=== PATIENT | male | born 1940 | race Caucasian/White ===

== ENCOUNTER 2016-05-25 12:11 | Emergency (ER) | payer MEDICARE, BC ==
[2016-05-25] MEDS ORDERED: SODIUM CHLORIDE 0.9% 1,000 ML IV ONE (12:33)
[2016-05-25] MEDS ORDERED: DIAZEPAM 5 MG/ML 2 ML SYRINGE IVP STA (12:33)
[2016-05-25] MEDS ORDERED: MECLIZINE 12.5 MG TAB PO STA (12:33)
[2016-05-25] MEDS ORDERED: ONDANSETRON 4 MG/2 ML VIAL IVP STA (12:33)
--- NOTE | 2016-05-25 12:48 | ED ---
Dizziness HPI - General Stated Complaint: near syncope Time Seen by Provider: 05/25/16 12:21 Source: patient Mode of arrival: EMS Limitations: no limitations - History of Present Illness Initial Comments: This is a 75-year-old male with a history of vertigo who presents here department for sudden onset of dizziness. He was closing on his house when the symptoms started. He states he became extremely dizzy which she describes as room spinning. He had associated nausea and lightheadedness with this. He did not pass out however felt like he might. He states that he had difficulty with ambulation because he was so dizzy. He denies any chest pain or shortness of breath. No abdominal pain. He does admit to some nausea and vomiting. No diarrhea. No headaches. No focal weakness. No other complaints. MD Complaint: dizziness - Related Data Home Medications Medication Instructions Recorded Confirmed Lenalidomide [Revlimid] 5 mg PO DAILY 05/25/16 05/25/16 Previous Rx's Medication Instructions Recorded Meclizine [Antivert] 25 mg PO TID PRN #20 tab 05/25/16 Allergies Allergy/AdvReac Type Severity Reaction Status Date / Time No Known Allergies Allergy Verified 05/25/16 12:49 Review of Systems ROS Statement: Those systems with pertinent positive or pertinent negative responses have been documented in the HPI. ROS Other: All systems not noted in ROS Statement are negative. Past Medical History Past Medical History: Cancer History of Any Multi-Drug Resistant Organisms: None Reported Past Surgical History: No Surgical Hx Reported Past Psychological History: No Psychological Hx Reported Smoking Status: Never smoker Past Alcohol Use History: None Reported Past Drug Use History: None Reported General Exam - General Exam Comments Initial Comments: Constitutional: Awake alert appears uncomfortable Head: Normocephalic atraumatic Eyes: no conjunctival injection No scleral icterus EOMI, the patient has a right beating nystagmus Neck: No JVD Supple Heart: Regular rate rhythm normal S1-S2 no murmurs Lungs: Clear to auscultation bilaterally No wheezing No rales Abdomen: Soft nondistended nontender Extremities: Non edematous DP pulses intact Radial pulses intact Neuro: A&Ox3 cranial nerves II through XII are grossly intact, 5 out of 5 strength in upper and lower extremities bilaterally, the patient has no dysdiadochokinesia in the bilateral upper extremities Psych: Appropriate mood and affect Limitations: no limitations Course Vital Signs 05/25/16 05/25/16 05/25/16 12:34 13:32 15:32 Temperature 96.1 F L 96.9 F L Pulse Rate 65 60 64 Respiratory 22 18 18 Rate Blood Pressure 199/93 148/71 153/73 O2 Sat by Pulse 99 98 98 Oximetry EKG Findings - EKG Comments: EKG Findings:: EKG showing sinus tach cardia with a rate of 56. There are some T-wave inversions in V2 V3 and lead 3 with an appearance of an incomplete bundle -branch block. QTC is 478. Other intervals are normal. No ectopy. Medical Decision Making - Medical Decision Making This 75-year-old male came in for sudden onset of vertigo. The patient had nystagmus on examination. Computed tomography scan was unremarkable except for some calcifications in his carotid arteries which the family was notified about. The patient a complete resolution of his symptoms with Valium and Antivert. His potassium was noted to be low however there are no EKG changes. He was given replacement in the emergency department. Patient felt good and wanted to go home. He was discharged with Antivert. He was told to follow-up with his primary doctor for further evaluation. He can return if he has worsening or changing symptoms. All questions were answered. - Lab Data Result diagrams: 05/25/16 12:20 05/25/16 12:20 Lab Results 05/25/16 05/25/16 05/25/16 Range/Units 12:20 12:20 12:20 WBC 5.2 (3.8-10.6) k/uL RBC 4.56 (4.30-5.90) m/uL Hgb 15.3 (13.0-17.5) gm/dL Hct 43.5 (39.0-53.0) % MCV 95.4 (80.0-100.0) fL MCH 33.5 (25.0-35.0) pg MCHC 35.2 (31.0-37.0) g/dL RDW 13.7 (11.5-15.5) % Plt Count 173 (150-450) k/uL Neutrophils % 44 % Lymphocytes % 41 % Monocytes % 6 % Eosinophils % 5 % Basophils % 1 % Neutrophils # 2.3 (1.3-7.7) k/uL Lymphocytes # 2.1 (1.0-4.8) k/uL Monocytes # 0.3 (0-1.0) k/uL Eosinophils # 0.3 (0-0.7) k/uL Basophils # 0.1 (0-0.2) k/uL PT 11.3 (9.0-12.0) sec INR 1.1 (<1.1) APTT 21.6 L (22.0-30.0) sec Sodium 140 (137-145) mmol/L Potassium 2.8 L* (3.5-5.1) mmol/L Chloride 105 (98-107) mmol/L Carbon Dioxide 20 L (22-30) mmol/L Anion Gap 15 mmol/L BUN 9 (9-20) mg/dL Creatinine 0.89 (0.66-1.25) mg/dL Est GFR (MDRD) Af Amer >60 (>60 ml/min/1.73 sqM) Est GFR (MDRD) Non-Af >60 (>60 ml/min/1.73 sqM) Glucose 181 H (74-99) mg/dL Calcium 8.9 (8.4-10.2) mg/dL Total Bilirubin 2.0 H (0.2-1.3) mg/dL AST 19 (17-59) U/L ALT 31 (21-72) U/L Alkaline Phosphatase 68 (38-126) U/L Total Protein 6.6 (6.3-8.2) g/dL Albumin 3.8 (3.5-5.0) g/dL Disposition Clinical Impression: Vertigo Disposition: HOME SELF-CARE Condition: Stable Instructions: Vertigo (ED), Benign Paroxysmal Positional Vertigo (ED) Prescriptions: Meclizine [Antivert] 25 mg PO TID PRN #20 tab PRN Reason: Dizziness Referrals: Kaylin Servin DO [Primary Care Provider] - 1-2 days
[2016-05-25 13:04] LABS: Basophils # (A) 0.1 k/uL (0-0.2); Basophils % (A) 1 %; CH 34.7; CHCM 36.5; Eosinophils # (A) 0.3 k/uL (0-0.7); Eosinophils % (A) 5 %; HCT 43.5 % (39.0-53.0); HDW 2.96; HGB 15.3 gm/dL (13.0-17.5); Luc # (Auto) 0.14; Luc % (Auto) 3; Lymphocytes # (A) 2.1 k/uL (1.0-4.8); Lymphocytes % (A) 41 %; MCH 33.5 pg (25.0-35.0); MCHC 35.2 g/dL (31.0-37.0); MCV 95.4 fL (80.0-100.0); Mean Platelet Volume 7.1; Monocytes # (A) 0.3 k/uL (0-1.0); Monocytes % (A) 6 %; Neutrophils # (A) 2.3 k/uL (1.3-7.7); Neutrophils % (A) 44 %; RBC 4.56 m/uL (4.30-5.90); RDW 13.7 % (11.5-15.5); WBC 5.2 k/uL (3.8-10.6); WBC (Perox) 5.29
[2016-05-25 13:13] LABS: INR 1.1 (<1.1); Prothrombin Time 11.3 sec (9.0-12.0)
[2016-05-25 13:14] LABS: ALT 31 U/L (21-72); AST 19 U/L (17-59); Alkaline Phosphatase 68 U/L (38-126); Anion Gap 15 mmol/L; Blood Urea Nitrogen 9 mg/dL (9-20); Calcium 8.9 mg/dL (8.4-10.2); Carbon Dioxide 20 mmol/L (22-30); Chloride 105 mmol/L (98-107); Glucose 181 mg/dL (74-99); Non-African American GFR(MDRD) >60 (>60 ml/min/1.73 sqM); Sodium 140 mmol/L (137-145); Total Protein 6.6 g/dL (6.3-8.2)
[2016-05-25 13:24] LABS: Potassium 2.8 mmol/L (3.5-5.1)
[2016-05-25] MEDS ORDERED: POTASSIUM CHLORIDE ER 20 MEQ TAB.ER PO STA (13:25)
--- NOTE | 2016-05-25 13:26 | CT ---
EXAMINATION TYPE: CT brain wo con DATE OF EXAM: 05/25/2016 1:06 PM HISTORY: Dizziness, nausea, vomiting and weakness. CT DLP: 1090.4 mGycm. Automated Exposure Control for Dose Reduction was Utilized. TECHNIQUE: CT scan of the head is performed without contrast. COMPARISON: None. FINDINGS: There is no acute intracranial hemorrhage or midline shift identified. There is diffuse v entricular and sulcal prominence consistent with diffuse age-related cerebral atrophy. There is low- attenuation in the periventricular white matter consistent with chronic small vessel ischemic change. There is moderate vascular calcification of distal internal carotid and vertebral arteries bilateral ly. The globes are intact and the visualized sinuses are clear. IMPRESSION: No acute intracranial hemorrhage or midline shift. There is moderate diffuse age-relate d cerebral atrophy and mild chronic small vessel ischemic change noted.
[2016-05-25 13:31] LABS: Partial Thromboplastin Time 21.6 sec (22.0-30.0)
[2016-05-25 13:33] VITALS: RESP 18
[2016-05-25 15:35] VITALS: BP 153/73; PULSE 64; TEMP 96.9
== END 2016-05-25 15:35 | disposition home or self-care (01) ==
LOC: EC 12:11
DX: R42 Dizziness and giddiness (principal); R11.2 Nausea with vomiting, unspecified; Z85.9 Personal history of malignant neoplasm, unspecified; Z79.899 Other long term (current) drug therapy
CPT/HCPCS: 36415; 93005; 80053; 85025; 85610; 85730; 70450; 99285; 96374; 96361; J3360

== ENCOUNTER 2020-07-09 10:00 | Inpatient (IN) | payer BC, MEDICARE ==
[2020-07-09] MEDS ORDERED: SODIUM CHLORIDE 0.9% 1,000 ML IV STA (10:36)
--- NOTE | 2020-07-09 10:51 | ED ---
General Adult HPI - General Chief complaint: Syncope Stated complaint: syncope Time Seen by Provider: 07/09/20 10:20 Source: patient, family Mode of arrival: wheelchair Limitations: no limitations - History of Present Illness Initial comments: Patient is a pleasant 79-year-old male presenting to the emergency Department with complaints of syncopal episode. Patient felt nauseated and then believes he lost consciousness for around one second. Patient did strike his head. No headache. No confusion. No weakness. Patient has been fatigued and decreased appetite over the past several days. Patient has been drinking fluids. No fevers. Patient did receive his second dose of chronic back seen just yesterday. Last tetanus immunization was around 10 years ago. Patient refuses immunization at this time - Related Data Home Medications Medication Instructions Recorded Confirmed Lenalidomide [Revlimid] 5 mg PO DAILY 05/25/16 05/25/16 Previous Rx's Medication Instructions Recorded Meclizine [Antivert] 25 mg PO TID PRN #20 tab 05/25/16 Allergies Allergy/AdvReac Type Severity Reaction Status Date / Time No Known Allergies Allergy Verified 07/09/20 10:17 Review of Systems ROS Statement: Those systems with pertinent positive or pertinent negative responses have been documented in the HPI. ROS Other: All systems not noted in ROS Statement are negative. Constitutional: Denies: fever Eyes: Denies: eye pain ENT: Reports: congestion. Denies: ear pain Respiratory: Denies: cough, dyspnea Cardiovascular: Denies: chest pain Endocrine: Reports: fatigue Gastrointestinal: Reports: nausea. Denies: abdominal pain, vomiting Genitourinary: Denies: dysuria Musculoskeletal: Denies: back pain Skin: Denies: rash Neurological: Denies: headache, weakness, confusion Past Medical History Past Medical History: Cancer History of Any Multi-Drug Resistant Organisms: None Reported Past Surgical History: No Surgical Hx Reported Past Psychological History: No Psychological Hx Reported Smoking Status: Never smoker Past Alcohol Use History: None Reported Past Drug Use History: None Reported General Exam Limitations: no limitations General appearance: alert, in no apparent distress Head exam: Present: other (Forehead abrasion) Eye exam: Present: normal appearance, PERRL, EOMI. Absent: nystagmus ENT exam: Present: normal oropharynx Neck exam: Present: normal inspection. Absent: tenderness Respiratory exam: Present: normal lung sounds bilaterally Cardiovascular Exam: Present: regular rate, normal rhythm GI/Abdominal exam: Present: soft. Absent: tenderness Extremities exam: Present: normal inspection. Absent: pedal edema, calf tenderness Neurological exam: Present: alert, CN II-XII intact. Absent: motor sensory deficit Expanded Neurological exam: Present: protecting the airway Speech: Present: fluid speech Cranial nerves: EOM's Intact: Normal, Facial Sensation: Normal Cerebellar function: Finger to Nose: Normal Sensory exam: Upper Extremity Light Touch: Normal, Lower Extremity Light Touch: Normal Motor strength exam: RUE: 5, LUE: 5, RLE: 5, LLE: 5 Eye Response: (4) open spontaneously Motor Response: (6) obeys commands Verbal Response: (5) oriented Psychiatric exam: Present: normal affect, normal mood Skin exam: Present: normal color Course Vital Signs 07/09/20 10:09 Temperature 97.4 F L Pulse Rate 63 Respiratory 18 Rate Blood Pressure 130/77 O2 Sat by Pulse 96 Oximetry EKG Findings - EKG Comments: EKG Findings:: Normal sinus rhythm at 71. NE 166. QRS 106. QT 400. QTc 434. Normal axis. Incomplete right bundle-branch block. No acute ST change. Medical Decision Making - Lab Data Result diagrams: 07/09/20 10:43 07/09/20 10:43 Lab Results 07/09/20 07/09/20 07/09/20 Range/Units 10:43 10:43 10:43 WBC 1.9 L (3.8-10.6) k/uL RBC 4.52 (4.30-5.90) m/uL Hgb 14.9 (13.0-17.5) gm/dL Hct 43.8 (39.0-53.0) % MCV 96.8 (80.0-100.0) fL MCH 33.0 (25.0-35.0) pg MCHC 34.1 (31.0-37.0) g/dL RDW 13.4 (11.5-15.5) % Plt Count 101 L (150-450) k/uL MPV 8.2 Neutrophils % 67 % Lymphocytes % 19 % Monocytes % 12 % Eosinophils % 0 % Basophils % 1 % Neutrophils # 1.3 (1.3-7.7) k/uL Lymphocytes # 0.4 L (1.0-4.8) k/uL Monocytes # 0.2 (0-1.0) k/uL Eosinophils # 0.0 (0-0.7) k/uL Basophils # 0.0 (0-0.2) k/uL PT 10.6 (9.0-12.0) sec INR 1.0 (<1.2) APTT 24.9 (22.0-30.0) sec Sodium (137-145) mmol/L Potassium (3.5-5.1) mmol/L Chloride (98-107) mmol/L Carbon Dioxide (22-30) mmol/L Anion Gap mmol/L BUN (9-20) mg/dL Creatinine (0.66-1.25) mg/dL Est GFR (CKD-EPI)AfAm (>60 ml/min/1.73 sqM) Est GFR (CKD-EPI)NonAf (>60 ml/min/1.73 sqM) Glucose (74-99) mg/dL Calcium (8.4-10.2) mg/dL Magnesium (1.6-2.3) mg/dL Total Bilirubin (0.2-1.3) mg/dL AST (17-59) U/L ALT (4-49) U/L Alkaline Phosphatase (38-126) U/L Troponin I (0.000-0.034) ng/mL Total Protein (6.3-8.2) g/dL Albumin (3.5-5.0) g/dL Urine Color Yellow Urine Appearance Clear (Clear) Urine pH 6.0 (5.0-8.0) Ur Specific [place] 1.014 (1.001-1.035) Urine Protein 1+ H (Negative) Urine Glucose (UA) Negative (Negative) Urine Ketones 1+ H (Negative) Urine Blood Negative (Negative) Urine Nitrite Negative (Negative) Urine Bilirubin Negative (Negative) Urine Urobilinogen <2.0 (<2.0) mg/dL Ur Leukocyte Esterase Large H (Negative) Urine RBC 1 (0-5) /hpf Urine WBC 18 H (0-5) /hpf Ur Squamous Epith Cells <1 (0-4) /hpf Urine Bacteria Rare H (None) /hpf Urine Mucus Rare H (None) /hpf Coronavirus (PCR) (Not Detectd) 07/09/20 07/09/20 07/09/20 Range/Units 10:43 10:43 11:49 WBC (3.8-10.6) k/uL RBC (4.30-5.90) m/uL Hgb (13.0-17.5) gm/dL Hct (39.0-53.0) % MCV (80.0-100.0) fL MCH (25.0-35.0) pg MCHC (31.0-37.0) g/dL RDW (11.5-15.5) % Plt Count (150-450) k/uL MPV Neutrophils % % Lymphocytes % % Monocytes % % Eosinophils % % Basophils % % Neutrophils # (1.3-7.7) k/uL Lymphocytes # (1.0-4.8) k/uL Monocytes # (0-1.0) k/uL Eosinophils # (0-0.7) k/uL Basophils # (0-0.2) k/uL PT (9.0-12.0) sec INR (<1.2) APTT (22.0-30.0) sec Sodium 135 L (137-145) mmol/L Potassium 4.0 (3.5-5.1) mmol/L Chloride 99 (98-107) mmol/L Carbon Dioxide 27 (22-30) mmol/L Anion Gap 9 mmol/L BUN 12 (9-20) mg/dL Creatinine 1.12 (0.66-1.25) mg/dL Est GFR (CKD-EPI)AfAm 72 (>60 ml/min/1.73 sqM) Est GFR (CKD-EPI)NonAf 62 (>60 ml/min/1.73 sqM) Glucose 106 H (74-99) mg/dL Calcium 8.7 (8.4-10.2) mg/dL Magnesium 1.8 (1.6-2.3) mg/dL Total Bilirubin 1.2 (0.2-1.3) mg/dL AST 39 (17-59) U/L ALT 41 (4-49) U/L Alkaline Phosphatase 91 (38-126) U/L Troponin I <0.012 (0.000-0.034) ng/mL Total Protein 6.5 (6.3-8.2) g/dL Albumin 3.6 (3.5-5.0) g/dL Urine Color Urine Appearance (Clear) Urine pH (5.0-8.0) Ur Specific [place] (1.001-1.035) Urine Protein (Negative) Urine Glucose (UA) (Negative) Urine Ketones (Negative) Urine Blood (Negative) Urine Nitrite (Negative) Urine Bilirubin (Negative) Urine Urobilinogen (<2.0) mg/dL Ur Leukocyte Esterase (Negative) Urine RBC (0-5) /hpf Urine WBC (0-5) /hpf Ur Squamous Epith Cells (0-4) /hpf Urine Bacteria (None) /hpf Urine Mucus (None) /hpf Coronavirus (PCR) Detected A (Not Detectd) - Radiology Data Radiology results: report reviewed (Computed tomography scan of the brain reveals nonspecific white matter changes.), image reviewed (Chest x-ray shows some interstitial changes, possible right upper lobe pneumonia versus neoplasm. COPD.) Disposition Clinical Impression: Syncope, COVID-19 Disposition: ADMITTED IP TO THIS HOSP Is patient prescribed a controlled substance at d/c from ED?: No Referrals: Yessy Garcia DO [Primary Care Provider] - 1-2 days Decision Time: 14:27
[2020-07-09 11:27] LABS: Basophils % (A) 1 %; Eosinophils % (A) 0 %; HCT 43.8 % (39.0-53.0); HGB 14.9 gm/dL (13.0-17.5); Lymphocytes # (A) 0.4 k/uL (1.0-4.8); Lymphocytes % (A) 19 %; MCHC 34.1 g/dL (31.0-37.0); MCV 96.8 fL (80.0-100.0); Mean Platelet Volume 8.2; Monocytes # (A) 0.2 k/uL (0-1.0); Monocytes % (A) 12 %; Neutrophils # (A) 1.3 k/uL (1.3-7.7); Neutrophils % (A) 67 %; Platelet Count 101 k/uL (150-450); RBC 4.52 m/uL (4.30-5.90); RDW 13.4 % (11.5-15.5); WBC 1.9 k/uL (3.8-10.6)
[2020-07-09 11:31] LABS: Partial Thromboplastin Time 24.9 sec (22.0-30.0); Prothrombin Time 10.6 sec (9.0-12.0)
--- NOTE | 2020-07-09 11:54 | XR ---
EXAMINATION TYPE: XR chest 2V DATE OF EXAM: 07/09/2020 COMPARISON: NONE TECHNIQUE: PA and lateral views submitted. HISTORY: General weakness, cough's FINDINGS: There is a vague area of infiltrate right upper lobe. Could be pneumonia. Underlying neoplasm in the differential diagnosis. Hyperinflation compatible COPD. No pleural effusion or pneumothorax. Arthropa thy of the shoulders. Heart size stable. Biapical pleural thickening. IMPRESSION: 1. Right upper lobe pneumonia versus neoplasm correlate clinically. 2. COPD.
--- NOTE | 2020-07-09 11:56 | CT ---
EXAMINATION TYPE: CT brain wo con DATE OF EXAM: 07/09/2020 COMPARISON: Syncope HISTORY: Syncope CT DLP: 1135.4 mGycm Automated exposure control for dose reduction was used. FINDINGS: Mild generalized degenerative change. Faint low attenuation in the white matter most typical of remot e white matter ischemia. No midline shift or mass effect. Intracranial atherosclerotic changes noted. No acute hemorrhage. Calvarium intact. Changes of chronic sinusitis. Orbits symmetric. IMPRESSION: MILD NONSPECIFIC WHITE MATTER CHANGES MOST TYPICAL OF REMOTE WHITE MATTER ISCHEMIA.
[2020-07-09 12:49] LABS: Albumin 3.6 g/dL (3.5-5.0); Calcium 8.7 mg/dL (8.4-10.2); Magnesium 1.8 mg/dL (1.6-2.3); Total Bilirubin 1.2 mg/dL (0.2-1.3); Total Protein 6.5 g/dL (6.3-8.2)
[2020-07-09 13:30] LABS: Appearance,Urine Clear (Clear); Bacteria,Urine Rare /hpf; Bilirubin,Urine Negative (Negative); Blood,Urine Negative (Negative); Color,Urine Yellow; Glucose,Urine (UA) Negative (Negative); Ketones,Urine 1+ (Negative); Leukocyte Esterase,Urine Large (Negative); Mucus,Urine Rare /hpf; Nitrite,Urine Negative (Negative); Protein,Urine 1+ (Negative); RBC,Urine 1 /hpf (0-5); Specific Gravity,Urine 1.014 (1.001-1.035); Squamous Epithelial Cell,Urine <1 /hpf (0-4); Urobilinogen,Urine <2.0 mg/dL (<2.0); WBC,Urine 18 /hpf (0-5)
[2020-07-09] MEDS ORDERED: ONDANSETRON 4 MG/2 ML VIAL IVP PRN (14:28)
[2020-07-09] MEDS ORDERED: NALOXONE 0.4 MG/ML 1 ML VIAL IV PRN ×2 (14:28→17:48)
[2020-07-09] MEDS ORDERED: ACETAMINOPHEN TAB 325 MG TAB PO PRN (14:28)
[2020-07-09] MEDS: ASCORBIC ACID 500 MG TAB PO SCH (16:26)
[2020-07-09] MEDS: SODIUM CHLORIDE 0.9% 1,000 ML IV SCH (16:26)
[2020-07-09] MEDS: CHOLECALCIFEROL 25 MCG (1000 IU) TABLET PO SCH (16:26)
--- NOTE | 2020-07-09 17:56 | P.HPIM ---
History of Present Illness H&P Date: 07/09/20 Chief Complaint: Syncope 79-year-old male presenting to the emergency Department with complaints of syncopal episode. Patient felt nauseated and lightheaded when he was going to the bathroom to urinate and then believes he lost consciousness for around 2 seconds. Patient did strike his head against a wall. No headache. No confusion. No focal weakness. No shaking. Patient has been fatigued and decreased appetite over the past several days and therefore has not been eating and drinking much. No fevers or any recent illness. Also denied having any palpitations, chest pain or shortness of breath. Patient did receive his second dose of covid vaccine yesterday. Workup in the emergency department was negative, he was admitted for further evaluation. Review of Systems Complete review of system performed, pertinent positives per HPI, otherwise negative Past Medical History Past Medical History: Cancer History of Any Multi-Drug Resistant Organisms: None Reported Past Surgical History: No Surgical Hx Reported Past Psychological History: No Psychological Hx Reported Smoking Status: Never smoker Past Alcohol Use History: None Reported Past Drug Use History: None Reported Medications and Allergies Home Medications Medication Instructions Recorded Confirmed Type Lenalidomide [Revlimid] 5 mg PO DAILY 05/25/16 07/09/20 History Cyanocobalamin [Vitamin B-12 1,000 mcg SQ Q10D 07/09/20 07/09/20 History Injection] Allergies Allergy/AdvReac Type Severity Reaction Status Date / Time No Known Allergies Allergy Verified 07/09/20 15:02 Physical Exam Vitals: Vital Signs Temp Pulse Resp BP Pulse Ox 07/09/20 10:09 97.4 F L 63 18 130/77 96 Intake and Output 07/09/20 07/09/20 07/09/20 06:59 14:59 22:59 Other: Weight 79.379 kg Constitutional: No acute distress, conversant, pleasant Head: Frontal bruise Eyes:Anicteric sclerae, moist conjunctiva, no lid-lag, PERRLA, ENMT: Oropharynx clear, no erythema, exudates Neck: Supple, FROM, no masses, or JVD, No carotid bruits, No thyromegaly Lungs: Clear to auscultation, Clear to percussion, Normal respiratory effort, no accessory muscle use Cardiovascular: Heart regular in rate and rhythm, No murmurs, gallops, or rubs, No peripheral edema Abdominal: Soft, Nontender, no guarding, rebound or rigidity, Normoactive bowel sounds, No hepatomegaly, No splenomegaly, No palpable mass Skin: Normal temperature, tone, texture, turgor, no induration, No subcutaneous nodules, No rash, lesions, No ulcers Extremities: No digital cyanosis, No clubbing, Pedal pulses intact and symmetrical, Radial pulses intact and symmetrical, No calf tenderness Psychiatric: Alert and oriented to person, place and time, appropriate affect, intact judgement Neuro: Muscles Strength 5/5 in all 4 extremities, Sensation to light touch grossly present throughout, Cranial nerves II-XII grossly intact, no focal sensory deficits Results CBC & Chem 7: 07/09/20 10:43 07/09/20 10:43 Labs: Abnormal Lab Results - Last 24 Hours (Table) 07/09/20 07/09/20 07/09/20 Range/Units 10:43 10:43 10:43 WBC 1.9 L (3.8-10.6) k/uL Plt Count 101 L (150-450) k/uL Lymphocytes # 0.4 L (1.0-4.8) k/uL Sodium 135 L (137-145) mmol/L Glucose 106 H (74-99) mg/dL Urine Protein 1+ H (Negative) Urine Ketones 1+ H (Negative) Ur Leukocyte Esterase Large H (Negative) Urine WBC 18 H (0-5) /hpf Urine Bacteria Rare H (None) /hpf Urine Mucus Rare H (None) /hpf Coronavirus (PCR) (Not Detectd) 07/09/20 Range/Units 11:49 WBC (3.8-10.6) k/uL Plt Count (150-450) k/uL Lymphocytes # (1.0-4.8) k/uL Sodium (137-145) mmol/L Glucose (74-99) mg/dL Urine Protein (Negative) Urine Ketones (Negative) Ur Leukocyte Esterase (Negative) Urine WBC (0-5) /hpf Urine Bacteria (None) /hpf Urine Mucus (None) /hpf Coronavirus (PCR) Detected A (Not Detectd) Assessment and Plan Plan: Syncope Unclear etiology Cycle troponins Telemetry Echocardiogram Consult cardiology and neurology 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
[2020-07-10] MEDS: CHOLECALCIFEROL 25 MCG (1000 IU) TABLET PO SCH (08:22)
[2020-07-10] MEDS: PANTOPRAZOLE 40 MG/10 ML VIAL IV SCH (08:22)
[2020-07-10] MEDS: ASCORBIC ACID 500 MG TAB PO SCH ×2 (08:22→21:23)
[2020-07-10] MEDS: NON FORMULARY DRUG (Lenalidomide [Revlimid] 5 MG Capsule) PO SCH (09:15)
[2020-07-10 10:12] LABS: Basophils # (A) 0.05 X 10*3/uL (0.00-0.10); Eosinophils # (A) 0.02 X 10*3/uL (0.04-0.35); Eosinophils % (A) 0.8 %; HCT 43.5 % (39.6-50.0); Lymphocytes # (A) 0.76 X 10*3/uL (0.90-5.00); Lymphocytes % (A) 31.1 %; MCH 33.2 pg (27.0-32.0); MCHC 34.5 g/dL (32.0-37.0); MCV 96.2 fL (80.0-97.0); Mean Platelet Volume 10.8 fL (9.5-12.2); Monocytes # (A) 0.31 X 10*3/uL (0.20-1.00); Monocytes % (A) 12.7 %; Neutrophils # (A) 1.29 X 10*3/uL (1.80-7.70); Platelet Count 121 X 10*3/uL (140-440); RBC 4.52 X 10*6/uL (4.40-5.60); RDW 12.7 % (11.5-14.5); WBC 2.44 X 10*3/uL (4.50-10.00)
--- NOTE | 2020-07-10 12:10 | ECHOF ---
Referral Reason:syncope MEASUREMENTS -------- HEIGHT: 180.3 cm WEIGHT: 79.4 kg BP: 123/74 RVIDd: 3.3 cm (< 3.3) IVSd: 1.3 cm (0.6 - 1.1) LVIDd: 4.0 cm (3.9 - 5.3) LVPWd: 1.2 cm (0.6 - 1.1) IVSs: 1.7 cm LVIDs: 2.7 cm LVPWs: 1.5 cm LA Diam: 3.0 cm (2.7 - 3.8) Ao Diam: 3.1 cm (2.0 - 3.7) AV Cusp: 1.8 cm (1.5 - 2.6) MV EXCURSION: 15.293 mm (> 18.000) MV EF SLOPE: 58 mm/s (70 - 150) EPSS: 0.8 cm MV E Javier: 0.41 m/s MV DecT: 338 ms MV A Javier: 0.57 m/s MV E/A Ratio: 0.71 AV maxP.01 mmHg AV meanP.82 mmHg RAP: 5.00 mmHg RVSP: 36.80 mmHg FINDINGS -------- Sinus rhythm. This was a technically adequate study. The left ventricular size is normal. There is mild concentric left ventricular hypertrophy. Overa ll left ventricular systolic function is normal with, an EF between 60 - 65 %. The right ventricle is mildly enlarged. The left atrium is normal in size. The right atrium is normal in size. Interatrial and interventricular septum intact. There is mild aortic valve sclerosis. There is mild aortic stenosis present. Peak/mean gradient a cross the Aortic Valve is 16.01mmHg / 7.82mmHg. Mild mitral annular calcification present. Mild tricuspid regurgitation present. There is mild pulmonary hypertension. The right ventricular systolic pressure, as measured by Doppler, is 36.80mmHg. The pulmonic valve is normal. The aortic root size is normal. Normal inferior vena cava with normal inspiratory collapse consistent with estimated right atrial pre ssure of 5 mmHg. There is no pericardial effusion. CONCLUSIONS -------- 1. The left ventricular size is normal. 2. There is mild concentric left ventricular hypertrophy. 3. Overall left ventricular systolic function is normal with, an EF between 60 - 65 %. 4. The right ventricle is mildly enlarged. 5. There is mild aortic valve sclerosis. 6. There is mild aortic stenosis present. 7. Peak/mean gradient across the Aortic Valve is 16.01mmHg / 7.82mmHg. 8. Mild mitral annular calcification present. 9. Mild tricuspid regurgitation present. 10. There is mild pulmonary hypertension. 11. The right ventricular systolic pressure, as measured by Doppler, is 36.80mmHg. 12. There is no pericardial effusion. GENERAL REPAIR MECHANIC: Yohana Champagne RDCS
--- NOTE | 2020-07-10 12:14 | P.CNNES ---
History of Present Illness Consult date: 07/10/20 Requesting physician: Lili Dupree Reason for Consult: syncope History of Present Illness: This is an 79-year-old gentleman with medical history of myelodysplastic syndrome who presented emergency department on 07/09/2020 for a syncopal episode. Patient stated that he was in the bathroom feeling nauseous and the was vomiting and he was on the floor of the bathroom with his knees down facing the toilet and all of a sudden that he passed out stating the 2 seconds. He denies of any tongue bite associate with this episode or any urinary bowel incontinence at. Denies of any jerking of the extremities since it was so brief. This episode was not witnessed. He said that he regained consciousness quickly. He denies of any similar episodes in the past. He denies of any focal weakness, numbness, headache, fever, cough. Denies any family history of seizures. He denies of any chest pain associate with this episode. Per the ED note it is mentioned that the patient felt lightheaded around this episode which he never notified me at. Regarding his history he stated that he was a product of the term, normal vaginal delivery without any complication. There is no family history of seizures. He socially drinks alcohol. He is an ex-tobacco use. He follows up with his oncologist regarding his myelodysplastic syndrome which she had for years. Some of the workup in the hospital consisted of: Initial vital signs: Blood pressure of 130/77, heart rate of 63, temperature of 97.4 Fahrenheit oral, respiratory of 18, pulse ox of 96% on room air. CT of the head is reported as mild nonspecific white matter changes most typical of a remote white matter ischemia. EKG is reported as normal sinus rhythm. Incomplete right bundle branch block. Borderline EKG. Initial white blood cell is 1.9 and a repeat is 2.4. The platelet is 101 which are low. Sodium is 135 which is minimally low. Serum glucose is 106, calcium is 8.7 liver function test the basic AST and ALT are normal. Mendoza virus PCR is detected. Urinalysis leukocyte esterase was large, urine white blood cell is 18 and bacteria was rare. Review of Systems Review of system: The 12 point system was reviewed and apparent positive and negative per HPI. Past Medical History Past Medical History: Cancer Additional Past Medical History / Comment(s): MDS History of Any Multi-Drug Resistant Organisms: None Reported Past Surgical History: No Surgical Hx Reported Past Anesthesia/Blood Transfusion Reactions: No Reported Reaction Past Psychological History: No Psychological Hx Reported Smoking Status: Former smoker Past Alcohol Use History: Occasional Past Drug Use History: None Reported - Past Family History Father History Unknown: Yes Medications and Allergies Home Medications Medication Instructions Recorded Confirmed Type Lenalidomide [Revlimid] 5 mg PO DAILY 05/25/16 07/09/20 History Cyanocobalamin [Vitamin B-12 1,000 mcg SQ Q10D 07/09/20 07/09/20 History Injection] Allergies Allergy/AdvReac Type Severity Reaction Status Date / Time No Known Allergies Allergy Verified 07/09/20 15:02 Physical Examination - Vital Signs Vital Signs: Vital Signs Temp Pulse Pulse Resp BP BP Pulse Ox 07/10/20 05:41 98.3 F 73 18 123/74 95 07/10/20 02:00 98.7 F 67 20 118/67 92 L 07/09/20 21:40 99.3 F 59 L 20 126/66 92 L 07/09/20 20:00 18 07/09/20 18:43 98.1 F 68 18 158/77 94 L 07/09/20 18:18 98.8 F 92 18 136/78 96 Intake and Output 07/09/20 07/10/20 07/10/20 22:59 06:59 14:59 Intake Total 160 Balance 160 Intake: Intake, IV Titration 160 Amount Sodium Chloride 0.9% 1, 160 000 ml @ 20 mls/hr IV . Q24H [facility] Rx#:[id number] Other: Voiding Method Toilet Weight 79.379 kg GENERAL: The patient is lying in bed and is not in acute distress. CHEST: The heart rate is regular rate rhythm. No murmurs to auscultation. No carotid bruit bilaterally. LUNG: Clear to auscultation bilaterally no wheezing noted throughout. Not labored breathing. ABDOMEN/GI: Bowel sounds present in all 4 quadrants. No tenderness to palpation throughout. NEUROLOGICAL: Higher mental function: The patient is awake, alert, oriented to self, place and time. Patient is following commands. No aphasia and no neglect. Cranial nerves: The pupils are round, equal and reactive to light and accommodation. Visual branch are full to confrontation throughout. Extraocular movement is intact no nystagmus is noted. Facial sensation is normal to touch throughout. The facial strength is normal throughout. Hearing is normal bilaterally to hand rub. Tongue is midline and moved [id number] without any difficulty. No dysarthria is noted. Shoulder shrug is normal bilaterally. Motor: Gait is deferred. The strength is 5 over 5 throughout. Normal tone and bulk. Cerebellum: Normal finger to nose heel to chin bilaterally. Sensation: Sensation is normal to touch throughout. Reflexes (right/left): 2+ throughout. Plantars are downgoing bilaterally. Results - Laboratory Findings CBC and BMP: 07/10/20 05:53 07/10/20 05:53 Abnormal Lab Findings: Abnormal Labs 07/09/20 07/09/20 07/09/20 10:43 10:43 10:43 WBC 1.9 L MCH Plt Count 101 L Neutrophils # Lymphocytes # 0.4 L Eosinophils # Sodium 135 L Glucose 106 H Urine Protein 1+ H Urine Ketones 1+ H Ur Leukocyte Esterase Large H Urine WBC 18 H Urine Bacteria Rare H Urine Mucus Rare H Coronavirus (PCR) 07/09/20 07/10/20 11:49 05:53 WBC 2.44 L MCH 33.2 H Plt Count 121 L Neutrophils # 1.29 L Lymphocytes # 0.76 L Eosinophils # 0.02 L Sodium Glucose Urine Protein Urine Ketones Ur Leukocyte Esterase Urine WBC Urine Bacteria Urine Mucus Coronavirus (PCR) Detected A Assessment and Plan Assessment: CT of the head is reported as mild nonspecific white matter changes most typical of a remote white matter ischemia. Syncope. Seems vasovagal syncope. Pneumonia due to COVID-19 Myelodysplastic syndrome Plan: I ordered a routine EEG. I will not start the patient on antiepileptic drug unless there is epileptiform discharges or seizure on the EEG. 2-D echo was ordered and is pending I ordered orthostatic with vital sign. Cardiology team is consulted. Continue cardiac monitoring. We will defer the rest of medical management to the primary team. If the EEG is normal from a neurological perspective there is no other additional workup needed. We'll defer the rest of the medical management to the the cardiology team and the primary team. The plan is discussed with the patient's nurse. Thank you for the consultation. UPDATE: EEG: Normal. Orthostatic vitals: Supine blood pressure is 122/67 with a heart rate 69; sitting his blood pressure of 132/74 with a heart rate of 79 and standing his blood pressure of 119/67 with a heart rate of 83. Orthostatics are normal. There is no further neurological work-up. Please reconsult neurology if needed. Peter Pardo MD Neuro-Hospitalist Time with Patient: Greater than 30
--- NOTE | 2020-07-10 12:45 | P.PN ---
Subjective Progress Note Date: 07/10/20 Principal diagnosis: Syncope Patient has not had any further episodes of lightheadedness or LOC. No cp or sob. Objective - Vital Signs Vital signs: Vital Signs Temp 98.3 F 07/10/20 10:19 Pulse 80 07/10/20 10:19 Resp 17 07/10/20 10:19 BP 116/64 07/10/20 10:19 Pulse Ox 96 07/10/20 10:19 Intake & Output 07/09/20 07/10/20 07/10/20 18:59 06:59 18:59 Intake Total 160 Balance 160 Weight 79.379 kg 79.379 kg Intake: Intake, IV Titration 160 Amount Sodium Chloride 0.9% 1, 160 000 ml @ 20 mls/hr IV . Q24H [facility] Rx#:[id number] Other: Voiding Method Toilet - Exam Constitutional: No acute distress, conversant, pleasant Eyes:Anicteric sclerae, moist conjunctiva, no lid-lag, PERRLA, ENMT: Oropharynx clear, no erythema, exudates Neck: Supple, FROM, no masses, or JVD, No carotid bruits, No thyromegaly Lungs: Clear to auscultation, Clear to percussion, Normal respiratory effort, no accessory muscle use Cardiovascular: Heart regular in rate and rhythm, No murmurs, gallops, or rubs, No peripheral edema Abdominal: Soft, Nontender, no guarding, rebound or rigidity, Normoactive bowel sounds, No hepatomegaly, No splenomegaly, No palpable mass Skin: Normal temperature, tone, texture, turgor, no induration, No subcutaneous nodules, No rash, lesions, No ulcers Extremities: No digital cyanosis, No clubbing, Pedal pulses intact and symmetrical, Radial pulses intact and symmetrical, No calf tenderness Psychiatric: Alert and oriented to person, place and time, appropriate affect, intact judgement Neuro: Muscles Strength 5/5 in all 4 extremities, Sensation to light touch grossly present throughout, Cranial nerves II-XII grossly intact, no focal sensory deficits - Labs CBC & Chem 7: 07/10/20 05:53 07/09/20 10:43 Labs: Abnormal Lab Results - Last 24 Hours (Table) 07/09/20 07/09/20 07/09/20 Range/Units 10:43 10:43 11:49 WBC (4.50-10.00) X 10*3/uL MCH (27.0-32.0) pg Plt Count (140-440) X 10*3/uL Neutrophils # (1.80-7.70) X 10*3/uL Lymphocytes # (0.90-5.00) X 10*3/uL Eosinophils # (0.04-0.35) X 10*3/uL Sodium 135 L (137-145) mmol/L Glucose 106 H (74-99) mg/dL Urine Protein 1+ H (Negative) Urine Ketones 1+ H (Negative) Ur Leukocyte Esterase Large H (Negative) Urine WBC 18 H (0-5) /hpf Urine Bacteria Rare H (None) /hpf Urine Mucus Rare H (None) /hpf Coronavirus (PCR) Detected A (Not Detectd) 07/10/20 Range/Units 05:53 WBC 2.44 L (4.50-10.00) X 10*3/uL MCH 33.2 H (27.0-32.0) pg Plt Count 121 L (140-440) X 10*3/uL Neutrophils # 1.29 L (1.80-7.70) X 10*3/uL Lymphocytes # 0.76 L (0.90-5.00) X 10*3/uL Eosinophils # 0.02 L (0.04-0.35) X 10*3/uL Sodium (137-145) mmol/L Glucose (74-99) mg/dL Urine Protein (Negative) Urine Ketones (Negative) Ur Leukocyte Esterase (Negative) Urine WBC (0-5) /hpf Urine Bacteria (None) /hpf Urine Mucus (None) /hpf Coronavirus (PCR) (Not Detectd) Assessment and Plan Plan: Syncope Unclear etiology Troponins cycled, negative Telemetry Echocardiogram showing nothing acute, no significant abnormalities. Neurology recommending EEG Cardiology consult pending Myelodysplastic Syndrome Continue home meds Anticipated discharge tomorrow Disposition home
--- NOTE | 2020-07-10 12:59 | P.CRDCN ---
History of Present Illness Consult date: 07/10/20 History of present illness: CHIEF COMPLAINT: Syncope HISTORY OF PRESENT ILLNESS: This is a 79 year old male with a past medical history significant for myelodysplastic syndrome and former nicotine dependence. Patient does not follow with a er registrar. We have been asked to see the patient in consultation for syncope. Patient was apparently using the restroom when he became nauseated and passed out on the bathroom floor. Patient was found to be positive for Coronavirus in the emergency room. He is on room air with oxygen saturations greater than 92%. Telemetry reveals sinus mechanism with a heart rate in the 60-70s. Blood pressure 116/64. He is afebrile. DIAGNOSTICS: EKG reveals sinus mechanism with no signs of acute ischemia Chest xray right upper lobe pneumonia versus neoplasm. COPD. Laboratory data: WBC 2.44. Hemoglobin 15.0. Platelet count 121. Sodium 135. Potassium 4.0. BUN 12. Creatinine 1.12. Troponin negative 3 Current home cardiac medications include none Echocardiogram completed revealed ejection fraction 60-65%, mild aortic stenosis, mild tricuspid regurgitation, mild pulmonary hypertension REVIEW OF SYSTEMS: Thorough review of systems not completed secondary to limited evaluation/examination due to Covid19 PHYSICAL EXAM: Thorough physical exam not completed secondary to limited evaluation/examination due to Covid19 ASSESSMENT: Covid 19 Syncope Myelodysplastic syndrome Former nicotine dependence PLAN: Continue telemetry monitoring to assess for any arrhythmias Obtain orthostatic blood pressures Patient to receive event monitor at the time of discharge Patient may follow-up post discharge with Dr. Ortega Nurse practitioner note has been reviewed by physician. Signing provider agrees with the documented findings, assessment, and plan of care. Past Medical History Past Medical History: Cancer Additional Past Medical History / Comment(s): MDS History of Any Multi-Drug Resistant Organisms: None Reported Past Surgical History: No Surgical Hx Reported Past Anesthesia/Blood Transfusion Reactions: No Reported Reaction Past Psychological History: No Psychological Hx Reported Smoking Status: Former smoker Past Alcohol Use History: Occasional Past Drug Use History: None Reported - Past Family History Father History Unknown: Yes Medications and Allergies Home Medications Medication Instructions Recorded Confirmed Type Lenalidomide [Revlimid] 5 mg PO DAILY 05/25/16 07/09/20 History Cyanocobalamin [Vitamin B-12 1,000 mcg SQ Q10D 07/09/20 07/09/20 History Injection] Allergies Allergy/AdvReac Type Severity Reaction Status Date / Time No Known Allergies Allergy Verified 07/09/20 15:02 Physical Exam Vitals: Vital Signs Temp Pulse Pulse Resp BP BP Pulse Ox 07/10/20 10:19 98.3 F 80 17 116/64 96 07/10/20 05:41 98.3 F 73 18 123/74 95 07/10/20 02:00 98.7 F 67 20 118/67 92 L 07/09/20 21:40 99.3 F 59 L 20 126/66 92 L 07/09/20 20:00 18 07/09/20 18:43 98.1 F 68 18 158/77 94 L 07/09/20 18:18 98.8 F 92 18 136/78 96 Intake and Output 07/09/20 07/10/20 07/10/20 22:59 06:59 14:59 Intake Total 160 Balance 160 Intake: Intake, IV Titration 160 Amount Sodium Chloride 0.9% 1, 160 000 ml @ 20 mls/hr IV . Q24H [facility] Rx#:[id number] Other: Voiding Method Toilet Weight 79.379 kg Results 07/10/20 05:53 07/09/20 10:43 Cardiac Enzymes 07/09/20 07/09/20 07/09/20 Range/Units 10:43 14:53 18:08 AST 39 (17-59) U/L Troponin I <0.012 <0.012 (0.000-0.034) ng/mL CBC 07/10/20 Range/Units 05:53 WBC 2.44 L (4.50-10.00) X 10*3/uL RBC 4.52 (4.40-5.60) X 10*6/uL Hgb 15.0 (13.0-17.0) g/dL Hct 43.5 (39.6-50.0) % Plt Count 121 L (140-440) X 10*3/uL Comprehensive Metabolic Panel 07/09/20 Range/Units 10:43 Sodium 135 L (137-145) mmol/L Potassium 4.0 (3.5-5.1) mmol/L Chloride 99 (98-107) mmol/L Carbon Dioxide 27 (22-30) mmol/L BUN 12 (9-20) mg/dL Creatinine 1.12 (0.66-1.25) mg/dL Glucose 106 H (74-99) mg/dL Calcium 8.7 (8.4-10.2) mg/dL AST 39 (17-59) U/L ALT 41 (4-49) U/L Alkaline Phosphatase 91 (38-126) U/L Total Protein 6.5 (6.3-8.2) g/dL Albumin 3.6 (3.5-5.0) g/dL Current Medications Generic Name Dose Route Start Last Admin Trade Name Freq PRN Reason Stop Dose Admin Acetaminophen 650 mg 07/09/20 14:28 Acetaminophen Tab 325 Mg Tab PO Q6HR PRN Mild Pain or Fever > 100.5 Ascorbic Acid 500 mg 07/09/20 21:00 07/10/20 08:22 Ascorbic Acid 500 Mg Tab PO 500 mg BID LISA Administration Cholecalciferol 125 mcg 07/09/20 14:30 07/10/20 08:22 Cholecalciferol 25 Mcg (1000 Iu) Tablet PO 125 mcg DAILY LISA Administration Cyanocobalamin 1,000 mcg 07/16/20 09:00 Cyanocobalamin 1,000 Mcg/Ml 1 Ml Vial SQ Q10D LISA Sodium Chloride 1,000 mls @ 20 mls/hr 07/09/20 14:30 07/09/20 16:26 Saline 0.9% IV 20 mls/hr .Q24H LISA Administration Naloxone HCl 0.2 mg 07/09/20 14:28 Naloxone 0.4 Mg/Ml 1 Ml Vial IV Q2M PRN Opioid Reversal Naloxone HCl 0.2 mg 07/09/20 17:48 Naloxone 0.4 Mg/Ml 1 Ml Vial IV Q2M PRN Opioid Reversal Non-Formulary Medication 5 mg 07/10/20 09:00 07/10/20 09:15 Lenalidomide [Revlimid] PO Not Given DAILY LISA Ondansetron HCl 4 mg 07/09/20 14:28 Ondansetron 4 Mg/2 Ml Vial IVP Q8HR PRN Nausea And Vomiting Pantoprazole Sodium 40 mg 07/10/20 09:00 07/10/20 08:22 Pantoprazole 40 Mg/10 Ml Vial IV 40 mg DAILY LISA Administration Intake and Output 07/09/20 07/10/20 07/10/20 22:59 06:59 14:59 Intake Total 160 Balance 160 Intake: Intake, IV Titration 160 Amount Sodium Chloride 0.9% 1, 160 000 ml @ 20 mls/hr IV . Q24H [facility] Rx#:[id number] Other: Voiding Method Toilet Weight 79.379 kg 07/10/20 05:53 07/09/20 10:43
[2020-07-10] MEDS: SODIUM CHLORIDE 0.9% 1,000 ML IV SCH (13:15)
[2020-07-10 14:56] LABS: Albumin 3.7 g/dL (3.80-4.90); Albumin/Globulin Ratio 1.68 (1.60-3.17); Anion Gap 15.8 mmol/L (4.00-12.00); Calcium 8.2 mg/dL (8.7-10.3); Carbon Dioxide 22.2 mmol/L (21.6-31.8); Globulin 2.2 g/dL (1.6-3.3); Magnesium 1.8 mg/dL (1.5-2.4); Non-African American GFR(CKD) 70.8 (60.0-200.0); Phosphorus 2.7 mg/dL (2.4-5.1); Potassium 3.5 mmol/L (3.5-5.5); Total Bilirubin 1.1 mg/dL (0.2-1.2); Total Protein 5.9 g/dL (6.2-8.2)
--- NOTE | 2020-07-10 16:35 | EEG ---
ELECTROENCEPHALOGRAM REPORT DATE OF SERVICE: 07/10/2020. CLINICAL HISTORY: This is an 79-year-old gentleman with an episode of syncopal episode at home. This video EEG is obtained to evaluate for seizure and epileptiform activity. RELEVANT MEDICATION: The patient is not on any antiepileptic drug. EEG TYPE: A routine 21-channel EEG is performed with video using the 10/20 electrode placement system. DESCRIPTION: Wakefulness and drowsiness are obtained. During wakefulness, there is a posterior- dominant rhythm of low to moderate voltage, well modulated, well sustained of 8- 8.5 hertz. During drowsiness there is slowing and attenuation of background activity. There is no physiological stage II sleep. There is no focal slowing. INTERICTAL AND ICTAL: None. ACTIVATION PROCEDURES Photic stimulation did not evoke a posterior driving response. Hyperventilation is not performed. CLINICAL INTERPRETATION: This is a normal routine EEG. There are no focal slowing, epileptiform discharges or seizures on the EEG. Clinical correlation is recommended. MMJU / JUAN DIEGON: [id number] / MARTA
[2020-07-11 07:13] LABS: Glucose,Whole Blood 99 mg/dL (75-99)
[2020-07-11] MEDS: NON FORMULARY DRUG (Lenalidomide [Revlimid] 5 MG Capsule) PO SCH (08:38)
[2020-07-11] MEDS: CHOLECALCIFEROL 25 MCG (1000 IU) TABLET PO SCH (08:52)
[2020-07-11] MEDS: PANTOPRAZOLE 40 MG/10 ML VIAL IV SCH ×2 (08:52→08:56)
[2020-07-11] MEDS: ASCORBIC ACID 500 MG TAB PO SCH (08:53)
[2020-07-11] MEDS ORDERED: PANTOPRAZOLE 40 MG TABLET PO SCH (09:00)
[2020-07-11 09:47] VITALS: RESP 20
--- NOTE | 2020-07-11 12:58 | P.DS ---
Providers Date of admission: 07/09/20 14:28 Expected date of discharge: 07/11/20 Attending physician: Lili Dupree MD Consults: 07/09/20 17:50 Consult Physician Routine Consulting Provider: Peter Pardo Consult Reason/Comments: syncope Do you want consulting provider notified?: Yes Primary care physician: Yessy Garcia Hospital Course: 79-year-old male presenting to the emergency Department with complaints of syncopal episode. Patient felt nauseated and lightheaded when he was going to the bathroom to urinate and then believes he lost consciousness for around 2 se conds. Patient did strike his head against a wall. No headache. No confusion. No focal weakness. No shaking. Patient has been fatigued and decreased appetite over the past several days and therefore has not been eating and drinking much. No fevers or any recent illness. Also denied having any palpitations, chest pain or shortness of breath. Patient did receive his second dose of covid vaccine yesterday. Workup in the emergency department was negative, he was admitted for further evaluation. Patient was admitted on telemetry. It did not show any acute changes or arrhythmias throughout his stay. Orthostatics were checked and were normal. Patient was seen by cardiology, echocardiogram was done, that came back essentially normal. Patient did not have any further episodes of dizziness or passing out throughout the hospitalization. He was seen by neurology who recommended doing an EEG and that was okay. Patient was cleared by neurology and cardiology for discharge. Dressing Machine Operator recommended an event monitor but after explaining the benefits of it patient adamantly refused to wear it saying that he understands the risk of dying or severe injury caused by any possible next episode of syncope. He is willing to take that risk. Discharge diagnoses Syncope of undetermined etiology Myelodysplastic syndrome Time for discharge 35 minutes. Plan - Discharge Summary Discharge Rx Participant: No New Discharge Prescriptions: Continue Lenalidomide [Revlimid] 5 mg PO DAILY Cyanocobalamin [Vitamin B-12 Injection] 1,000 mcg SQ Q10D Discharge Medication List Lenalidomide [Revlimid] 5 mg PO DAILY 05/25/16 [History] Cyanocobalamin [Vitamin B-12 Injection] 1,000 mcg SQ Q10D 07/09/20 [History] Follow up Appointment(s)/Referral(s): Yessy Garcia DO [Primary Care Provider] - 1-2 days Jae Ortega MD [STAFF PHYSICIAN] - 4 Weeks
[2020-07-11 13:44] VITALS: BP 159/72; PULSE 72; TEMP 98.2
[2020-07-16] MEDS ORDERED: CYANOCOBALAMIN 1,000 MCG/ML 1 ML VIAL SQ SCH (09:00)
--- NOTE | 2020-08-06 05:51 | CDI ---
Documentation Clarification Form Date: 08/06/2020 05:38:00 AM From: Savi Allen Admit Date: 07/09/2020 02:28:00 PM Patient Name: Alex Jones Visit Number: [id number] Discharge Date: 07/11/2020 02:08:00 PM ATTENTION: The Clinical Documentation Specialists (CDI) and [facility] Coding Staff appreciate your assistance in clarifying documentation. Please respond to the clarification below the line at the bottom and electronically sign. The CDI & [facility] Coding staff will review the response and follow-up if needed. Please note: Queries are made part of the Legal Health Record. If you have any questions, please contact the author of this message via ITS. Dr. Lili Dupree The COVID-19 test obtained on 07/09/20, Covid was detected. Documentation of pneumonia due to Covid found in neurology consult. Cardiology consult also documents Covid. Please clarify if patient had pneumonia due to Covid. History/risk factors: syncope, nauseated, weak, loss of appetite, Received Covid shot 2 Please clarify the COVID-19 status: [ ] Pneumonia due to COVID 19 [ ] COVID-19 ruled out [ ] Other, please specify Pneumonia due to COVID 19 MTDD
== END 2020-07-11 14:08 | disposition home or self-care (01) | DRG 177 ==
LOC: EC 10:00 → 4SSUR 14:28
PROVIDERS: ADMIT Internal Medicine; ATTEND Internal Medicine
DX: U07.1 COVID-19 (principal); J12.82 Pneumonia due to coronavirus disease 2019; J44.0 Chronic obstructive pulmonary disease with (acute) lower respiratory infection; Z87.891 Personal history of nicotine dependence; I45.10 Unspecified right bundle-branch block; D46.9 Myelodysplastic syndrome, unspecified; Z79.899 Other long term (current) drug therapy; R55 Syncope and collapse
CPT/HCPCS: 36415; 70450; 71046; 80053; 81001; 83735; 84100; 84484; 85025; 85610; 85730; 87635; 93005; 93306; 95819; 96360; 96361; 99285

== ENCOUNTER 2023-02-26 15:20 | Emergency (ER) | payer MEDICARE ==
[2023-02-26 15:38] VITALS: TEMP 97.8
[2023-02-26 16:05] LABS: Basophils % (A) 0 %; Eosinophils # (A) 0.1 k/uL (0-0.7); Eosinophils % (A) 2 %; HGB 15.2 gm/dL (13.0-17.5); Lymphocytes # (A) 1.3 k/uL (1.0-4.8); Lymphocytes % (A) 30 %; MCH 34.4 pg (25.0-35.0); MCHC 35.4 g/dL (31.0-37.0); MCV 97.1 fL (80.0-100.0); Mean Platelet Volume 7.5; Monocytes # (A) 0.2 k/uL (0-1.0); Monocytes % (A) 5 %; Neutrophils # (A) 2.6 k/uL (1.3-7.7); Neutrophils % (A) 61 %; Platelet Count 157 k/uL (150-450); RBC 4.43 m/uL (4.30-5.90); RDW 13.3 % (11.5-15.5); WBC 4.3 k/uL (3.8-10.6)
[2023-02-26] MEDS ORDERED: ONDANSETRON 4 MG/2 ML VIAL IVP STA (16:10)
[2023-02-26] MEDS ORDERED: PANTOPRAZOLE 40 MG/10 ML VIAL IVP STA (16:10)
[2023-02-26] MEDS ORDERED: SODIUM CHLORIDE 0.9% 500 ML 500 ML IV STA (16:10)
[2023-02-26 16:11] LABS: ALT 21 U/L (4-49); AST 26 U/L (17-59); African American GFR (CKD) 73 (>60 ml/min/1.73 sqM); Albumin 3.9 g/dL (3.5-5.0); Alkaline Phosphatase 74 U/L (38-126); Amylase 73 U/L (30-110); Anion Gap 10 mmol/L; Blood Urea Nitrogen 11 mg/dL (9-20); Calcium 8.9 mg/dL (8.4-10.2); Carbon Dioxide 25 mmol/L (22-30); Chloride 103 mmol/L (98-107); Glucose 109 mg/dL (74-99); Lipase 169 U/L (23-300); Non-African American GFR(CKD) 63 (>60 ml/min/1.73 sqM); Potassium 3.4 mmol/L (3.5-5.1); Sodium 138 mmol/L (137-145); Total Bilirubin 1.5 mg/dL (0.2-1.3); Total Protein 6.7 g/dL (6.3-8.2)
[2023-02-26] MEDS ORDERED: MORPHINE SULFATE 4 MG/ML SYRINGE IVP STA (16:11)
--- NOTE | 2023-02-26 16:11 | ED ---
Abdominal Pain HPI - General Chief Complaint: Abdominal Pain Stated Complaint: abd pain Time Seen by Provider: 02/26/23 16:10 Source: patient, family, RN notes reviewed, old records reviewed Mode of arrival: wheelchair - History of Present Illness Initial Comments: This is a 82-year-old male to the emergency department for evaluation. Patient Dese for evaluation of dull pain severe left-sided lower quadrant left inguinal abdominal pain with swelling and mass, patient believes he may have a significant hernia as he felt the symptoms about a week ago and noticed a mass there. A lump in a bulge, he also assessed again today. He has severe abdominal pain anytime he tries to eat -: days(s) Location: LLQ Radiation: LLQ Severity: moderate Severity scale (1-10): 6 Quality: fullness, sharp Consistency: intermittent Improves With: eating Worsens With: nothing - Related Data Home Medications Medication Instructions Recorded Confirmed Lenalidomide [Revlimid] 5 mg PO DAILY 05/25/16 07/09/20 Cyanocobalamin [Vitamin B-12 1,000 mcg SQ Q10D 07/09/20 07/09/20 Injection] Allergies Allergy/AdvReac Type Severity Reaction Status Date / Time No Known Allergies Allergy Verified 07/09/20 15:02 Review of Systems ROS Statement: Those systems with pertinent positive or pertinent negative responses have been documented in the HPI. ROS Other: All systems not noted in ROS Statement are negative. 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 Absent: scleral icterus, conjunctival injection, periorbital swelling ENT exam: Present: normal exam, mucous membranes moist Neck exam: Present: normal inspection. Absent: tenderness, meningismus, lymphadenopathy Respiratory exam: Present: normal lung sounds bilaterally. Absent: respiratory distress, wheezes, rales, rhonchi, stridor Cardiovascular Exam: Present: regular rate, normal rhythm, normal heart sounds. Absent: systolic murmur, diastolic murmur, rubs, gallop, clicks GI/Abdominal exam: Present: soft, normal bowel sounds. Absent: distended, tenderness, guarding, rebound, rigid Extremities exam: Present: normal inspection, full ROM, normal capillary refill. Absent: tenderness, pedal edema, joint swelling, calf tenderness Back exam: Present: normal inspection Neurological exam: Present: alert, oriented X3, CN II-XII intact Psychiatric exam: Present: normal affect, normal mood Skin exam: Present: warm, dry, intact, normal color. Absent: rash Course Vital Signs 02/26/23 02/26/23 15:31 18:05 Temperature 97.8 F Pulse Rate 69 60 Respiratory 16 18 Rate Blood Pressure 192/100 176/98 O2 Sat by Pulse 99 98 Oximetry - Reevaluation(s) Reevaluation #1: 02/26/23 16:59 Records reviewed Reevaluation #2: 02/26/23 18:01 Symptoms are improved here in the ER Reevaluation #3: 02/26/23 18:01 Patient informed results and questions answered Reevaluation #4: 02/26/23 16:18 Was pt. sent in by a medical professional or institution (, PA, FANCY PACKER, urgent care, hospital, or group home...) When possible be specific @ -no Did you speak to anyone other than the patient for history (EMS, parent, family, police, friend...)? What history was obtained from this source @ -no Did you review nursing and triage notes (agree or disagree)? Why? @ -agree Are old charts reviewed (outside hosp., previous admission, EMS record, old EKG, old radiological studies, urgent care reports/EKG's, group home records)? Report findings @ -yes Differential Diagnosis (chest pain, altered mental status, abdominal pain women, abdominal pain men, vaginal bleeding, weakness, fever, dyspnea, syncope, headache, dizziness, GI bleed, back pain, seizure, CVA, palpatations, mental health, musculoskeletal)? @ -prior EKG interpreted by me (3pts min.). @ -yes X-rays interpreted by me (1pt min.). @ -no CT interpreted by me (1pt min.). @ -yes left inguinal hernia U/S interpreted by me (1pt. min.). @ -no What testing was considered but not performed or refused? (CT, X-rays, U/S, labs)? Why? @ -none What meds were considered but not given or refused? Why? @ -none Did you discuss the management of the patient with other professionals (professionals i.e. Dr., PA, FANCY PACKER, lab, RT, psych nurse, social security specialist, assistant executive housekeeper, teacher, emergency communications officer, caser)? Give summary @ -no Was smoking cessation discussed for >3mins.? @ -no Was critical care preformed (if so, how long)? @ -no Were there social determinants of health that impacted care today? How? (Homelessness, low income, unemployed, alcoholism, drug addiction, transp ortation, low edu. Level, literacy, decrease access to med. care, long term, rehab)? @ -none Was there de-escalation of care discussed even if they declined (Discuss DNR or withdrawal of care, Hospice)? DNR status @ -no What co-morbidities impacted this encounter? (DM, HTN, Smoking, COPD, CAD, Cancer, CVA, ARF, Chemo, Hep., AIDS, mental health diagnosis, sleep apnea, morbid obesity)? @ -none Was patient admitted / discharged? Hospital course, mention meds given and route, prescriptions, significant lab abnormalities, going to OR and other pertinent info. @ - 82 male will be admitted for surgical evaluation consult regarding findings around cecum and appendix as well as left groin left inguinal inflammation, patient found having little hernia here in the ER seen by general surgery, hernia is reduced and patient can be discharged home Discharged Undiagnosed new problem with uncertain prognosis? @ -no Drug Therapy requiring intensive monitoring for toxicity (Heparin, Nitro, Insulin, Cardizem)? @ -no Were any procedures done? @ -no Diagnosis/symptom? @ -Abdominal pain with hernia, inguinal hernia reduced Acute, or Chronic, or Acute on Chronic? @ -Acute Uncomplicated (without systemic symptoms) or Complicated (systemic symptoms)? @ -Complicated Side effects of treatment? @ -no Exacerbation, Progression, or Severe Exacerbation? @ -exacerbation Poses a threat to life or bodily function? How? (Chest pain, [place], [place], pneumonia, PE, COPD, DKA, ARF, appy, cholecystitis, CVA, Diverticulitis, Homicidal, Suicidal, threat to staff... and all critical care pts) @ -yes with possibility of infection Reevaluation #5: 02/26/23 16:18 Differential Abdominal Pain Men: Appendicitis, cholecystitis, diverticulosis, ischemic bowel, pancreatitis, hepatitis, UTI, gastroenteritis, AAA, incarcerated hernia, bowel obstruction, constipation, inflammatory bowel, hepatitis, peptic ulcer disease, splenic infarction, perforated viscus, testicular torsion, this is not meant to be an all-inclusive list - Consultations Consultation #1: Spoke with [facility] we'll admit this patient Consultation #2: Dr. juárez for general surgery was paged Medical Decision Making - Medical Decision Making 82 male will be admitted for surgical evaluation consult regarding findings around cecum and appendix as well as left groin left inguinal inflammation - Lab Data Result diagrams: 02/26/23 15:47 02/26/23 15:47 Lab Results 02/26/23 02/26/23 02/26/23 Range/Units 15:47 15:47 15:47 WBC 4.3 (3.8-10.6) k/uL RBC 4.43 (4.30-5.90) m/uL Hgb 15.2 (13.0-17.5) gm/dL Hct 43.0 (39.0-53.0) % MCV 97.1 (80.0-100.0) fL MCH 34.4 (25.0-35.0) pg MCHC 35.4 (31.0-37.0) g/dL RDW 13.3 (11.5-15.5) % Plt Count 157 (150-450) k/uL MPV 7.5 Neutrophils % 61 % Lymphocytes % 30 % Monocytes % 5 % Eosinophils % 2 % Basophils % 0 % Neutrophils # 2.6 (1.3-7.7) k/uL Lymphocytes # 1.3 (1.0-4.8) k/uL Monocytes # 0.2 (0-1.0) k/uL Eosinophils # 0.1 (0-0.7) k/uL Basophils # 0.0 (0-0.2) k/uL PT 10.6 (10.0-12.5) sec INR 1.0 (<1.2) APTT 23.4 (22.0-30.0) sec Sodium 138 (137-145) mmol/L Potassium 3.4 L (3.5-5.1) mmol/L Chloride 103 (98-107) mmol/L Carbon Dioxide 25 (22-30) mmol/L Anion Gap 10 mmol/L BUN 11 (9-20) mg/dL Creatinine 1.08 (0.66-1.25) mg/dL Est GFR (CKD-EPI)AfAm 73 (>60 ml/min/1.73 sqM) Est GFR (CKD-EPI)NonAf 63 (>60 ml/min/1.73 sqM) Glucose 109 H (74-99) mg/dL Calcium 8.9 (8.4-10.2) mg/dL Total Bilirubin 1.5 H (0.2-1.3) mg/dL AST 26 (17-59) U/L ALT 21 (4-49) U/L Alkaline Phosphatase 74 (38-126) U/L Troponin I (0.000-0.034) ng/mL Total Protein 6.7 (6.3-8.2) g/dL Albumin 3.9 (3.5-5.0) g/dL Amylase 73 (30-110) U/L Lipase 169 (23-300) U/L Urine Color Urine Appearance (Clear) Urine pH (5.0-8.0) Ur Specific [place] (1.001-1.035) Urine Protein (Negative) Urine Glucose (UA) (Negative) Urine Ketones (Negative) Urine Blood (Negative) Urine Nitrite (Negative) Urine Bilirubin (Negative) Urine Urobilinogen (<2.0) mg/dL Ur Leukocyte Esterase (Negative) Urine RBC (0-5) /hpf Urine WBC (0-5) /hpf Ur Squamous Epith Cells (0-4) /hpf Urine Mucus (None) /hpf 02/26/23 02/26/23 Range/Units 15:47 18:00 WBC (3.8-10.6) k/uL RBC (4.30-5.90) m/uL Hgb (13.0-17.5) gm/dL Hct (39.0-53.0) % MCV (80.0-100.0) fL MCH (25.0-35.0) pg MCHC (31.0-37.0) g/dL RDW (11.5-15.5) % Plt Count (150-450) k/uL MPV Neutrophils % % Lymphocytes % % Monocytes % % Eosinophils % % Basophils % % Neutrophils # (1.3-7.7) k/uL Lymphocytes # (1.0-4.8) k/uL Monocytes # (0-1.0) k/uL Eosinophils # (0-0.7) k/uL Basophils # (0-0.2) k/uL PT (10.0-12.5) sec INR (<1.2) APTT (22.0-30.0) sec Sodium (137-145) mmol/L Potassium (3.5-5.1) mmol/L Chloride (98-107) mmol/L Carbon Dioxide (22-30) mmol/L Anion Gap mmol/L BUN (9-20) mg/dL Creatinine (0.66-1.25) mg/dL Est GFR (CKD-EPI)AfAm (>60 ml/min/1.73 sqM) Est GFR (CKD-EPI)NonAf (>60 ml/min/1.73 sqM) Glucose (74-99) mg/dL Calcium (8.4-10.2) mg/dL Total Bilirubin (0.2-1.3) mg/dL AST (17-59) U/L ALT (4-49) U/L Alkaline Phosphatase (38-126) U/L Troponin I <0.012 (0.000-0.034) ng/mL Total Protein (6.3-8.2) g/dL Albumin (3.5-5.0) g/dL Amylase (30-110) U/L Lipase (23-300) U/L Urine Color Colorless Urine Appearance Clear (Clear) Urine pH 5.5 (5.0-8.0) Ur Specific [place] 1.009 (1.001-1.035) Urine Protein Negative (Negative) Urine Glucose (UA) Negative (Negative) Urine Ketones Trace H (Negative) Urine Blood Negative (Negative) Urine Nitrite Negative (Negative) Urine Bilirubin Negative (Negative) Urine Urobilinogen <2.0 (<2.0) mg/dL Ur Leukocyte Esterase Moderate H (Negative) Urine RBC 2 (0-5) /hpf Urine WBC 2 (0-5) /hpf Ur Squamous Epith Cells <1 (0-4) /hpf Urine Mucus Rare H (None) /hpf - EKG Data -: EKG Interpreted by Me (EKG is sinus 68 AR 161 QRS 82 QTC 415) - Radiology Data Radiology results: report reviewed (CT head and pelvis is positive for left inguinal hernia and possible cecal inflammation), image reviewed Disposition Clinical Impression: Abdominal pain, Abdominal colic, Left inguinal hernia Disposition: HOME SELF-CARE Condition: Fair Instructions (If sedation given, give patient instructions): Inguinal Hernia (ED) Is patient prescribed a controlled substance at d/c from ED?: No Referrals: Laurent Troy MD [Medical Doctor] - 1 Week Susanne Cortes MD [STAFF PHYSICIAN] - 1 Week None,Stated [Primary Care Provider] - 1-2 days Adán Marquez MD [STAFF PHYSICIAN] - 1 Week Time of Disposition: 18:00
[2023-02-26 16:13] LABS: Partial Thromboplastin Time 23.4 sec (22.0-30.0); Prothrombin Time 10.6 sec (10.0-12.5)
--- NOTE | 2023-02-26 16:54 | XR ---
EXAMINATION TYPE: XR KUB DATE OF EXAM: 02/26/2023 4:30 PM CLINICAL INDICATION:Male, 82 years old with history of abdominal pain; COMPARISON: 02/26/2023. TECHNIQUE: One radiographic view of the abdomen was obtained. FINDINGS: The bowel gas pattern is nonspecific without dilated loops of small or large bowel. There i s no evidence for organomegaly or pneumoperitoneum. The osseous structures are intact. No abnormal calcifications are present. Fecal material and gas are demonstrated throughout the colon and rectum. IMPRESSION: Nonspecific bowel gas pattern without radiographic evidence for acute process. See CT same day for an y additional findings.
--- NOTE | 2023-02-26 17:05 | CT ---
EXAMINATION TYPE: CT abdomen pelvis wo con CT DLP: 562 mGycm, Automated exposure control for dose reduction was used. DATE OF EXAM: 02/26/2023 4:39 PM COMPARISON: Plain film same day CLINICAL INDICATION:Male, 82 years old with history of abdominal pain; LLQ pain TECHNIQUE: Axial CT abdomen pelvis wo con;Sagittal and coronal reformats were created on a separate workstation. Contrast used: mL of , (none if empty) Oral contrast used: without Oral Contrast (none if empty) FINDINGS: LOWER CHEST: Heart is mildly enlarged for size with aortic valve leaflet calcifications. ABDOMEN LIVER: Unremarkable GALLBLADDER AND BILE DUCTS: Gallstones layering in the gallbladder lumen. PANCREAS: Unremarkable. SPLEEN: Unremarkable. ADRENAL GLANDS: Unremarkable. KIDNEYS AND URETERS: No evidence of hydronephrosis or renal calculus. The ureters are unremarkable. PELVIS BLADDER: Few scattered bladder diverticula. REPRODUCTIVE: Prostate is enlarged in size measuring 5.7 cm in transverse dimension. ABDOMEN & PELVIS STOMACH AND BOWEL: No evidence of bowel obstruction. Irregular thickening of the cecum with wall thickening up to 9 mm. The appendix ostium is near this w all thickening in the appendix is dilated up to 9 mm. There is no adjacent fat stranding changes at t his time. PERITONEUM/RETROPERITONEUM: No evidence of pneumoperitoneum or free fluid. VASCULATURE: Mild atherosclerotic calcifications are present throughout the abdominal aorta and its b ranches. No evidence of aortic aneurysm. MUSCULOSKELETAL: No acute osseous abnormalities. Mild disc degeneration changes are present throughou t the thoracolumbar spine. LYMPH NODES: Prominent mesenteric lymph node near the cecum measuring 8 mm in short axis series 201 i mage 109. SOFT TISSUE/ABDOMINAL WALL: Fat-containing left inguinal hernia. There is mild inflammation changes n oted around this hernia on series 201 image 151. IMPRESSION: 1. Prominent cecum wall thickening concerning for malignancy. This is felt to be obstructing the ost ium of the appendix which is causing dilation of the appendix. No evidence for inflammation of the ap pendix at this time. Direct visualization recommended 2. No evidence for diverticulitis or obstructive uropathy.. There is some inflammation changes aroun d the left inguinal canal Findings could be possibly related to urinary bladder diverticula and/or le ft inguinal hernia. 3. Prostatomegaly with evidence of chronic bladder outlet obstruction with bladder diverticula. 4. Cholelithiasis.
[2023-02-26] MEDS ORDERED: POTASSIUM BICARBONATE/CIT AC 20 MEQ TABLET.EFF PO ONE (17:15)
[2023-02-26] MEDS ORDERED: ONDANSETRON 4 MG/2 ML VIAL IVP PRN (17:57)
[2023-02-26] MEDS ORDERED: NALOXONE 0.4 MG/ML 1 ML VIAL IV PRN (17:57)
[2023-02-26] MEDS ORDERED: MORPHINE SULFATE 4 MG/ML SYRINGE IV PRN (17:57)
[2023-02-26] MEDS ORDERED: SODIUM CHLORIDE 0.9% 1,000 ML IV SCH (18:00)
[2023-02-26 18:08] VITALS: BP 176/98; PULSE 60; RESP 18
[2023-02-26 18:15] LABS: Appearance,Urine Clear (Clear); Bilirubin,Urine Negative (Negative); Blood,Urine Negative (Negative); Color,Urine Colorless; Glucose,Urine (UA) Negative (Negative); Ketones,Urine Trace (Negative); Leukocyte Esterase,Urine Moderate (Negative); Mucus,Urine Rare /hpf; Nitrite,Urine Negative (Negative); PH, Urine 5.5 (5.0-8.0); Protein,Urine Negative (Negative); RBC,Urine 2 /hpf (0-5); Specific Gravity,Urine 1.009 (1.001-1.035); Squamous Epithelial Cell,Urine <1 /hpf (0-4); Urobilinogen,Urine <2.0 mg/dL (<2.0); WBC,Urine 2 /hpf (0-5)
--- NOTE | 2023-02-27 07:15 | P.GSCN ---
History of Present Illness Consult date: 02/26/23 History of present illness: Patient is an 82-year-old male who presents with left groin pain. Patient states that he has had worsening left groin pain for the past 3-4 days. Denies any prior episodes such as this. He states the pain is worse with activity and resolves with rest. He denies any bulge in his groin that he is able to palpate. He admits to crampy abdominal pain that is relieved with bowel movement. He states his last bowel movement was the day of presentation. Admits to flatus. No dysuria or hematuria. No melena or hematochezia. He states he is able been tolerating by mouth intake without issue. No nausea or vomiting. No hematemesis. He states his last colonoscopy was approximately 10 years ago or one polypectomy was performed no family history of colon cancer. Upon presentation to [facility] emergency department a CT abdomen and pelvis was obtained which shows evidence of left inguinal canal inflammation suspicious for inguinal hernia as well as thickening of the cecum concerning for potential cecal malignancy without evidence of large bowel obstruction. 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 History of Any Multi-Drug Resistant Organisms: None Reported Past Surgical History: No Surgical Hx Reported Past Anesthesia/Blood Transfusion Reactions: No Reported Reaction Past Psychological History: No Psychological Hx Reported Smoking Status: Former smoker Past Alcohol Use History: Occasional Past Drug Use History: None Reported - Past Family History Father History Unknown: Yes Medications and Allergies Home Medications Medication Instructions Recorded Confirmed Type Lenalidomide [Revlimid] 5 mg PO DAILY 05/25/16 07/09/20 History Cyanocobalamin [Vitamin B-12 1,000 mcg SQ Q10D 07/09/20 07/09/20 History Injection] Allergies Allergy/AdvReac Type Severity Reaction Status Date / Time No Known Allergies Allergy Verified 07/09/20 15:02 Surgical - Exam Vital Signs Temp Pulse Resp BP Pulse Ox 97.8 F 69 16 192/100 99 02/26/23 15:31 02/26/23 15:31 02/26/23 15:31 02/26/23 15:31 02/26/23 15:31 - General Gen: AxO, NAD Pulm: non-labored respirations Abd: soft, non-tender, minimally distended, no guarding/rebound/rigidity. Reducible left inguinal hernia apprecated. Easily reducible. No overlying skin changes Extrem: no edema seen Results - Labs 02/26/23 15:47 02/26/23 15:47 Abnormal Lab Results - Last 24 Hours (Table) 02/26/23 02/26/23 Range/Units 15:47 18:00 Potassium 3.4 L (3.5-5.1) mmol/L Glucose 109 H (74-99) mg/dL Total Bilirubin 1.5 H (0.2-1.3) mg/dL Urine Ketones Trace H (Negative) Ur Leukocyte Esterase Moderate H (Negative) Urine Mucus Rare H (None) /hpf Diabetes panel 02/26/23 Range/Units 15:47 Sodium 138 (137-145) mmol/L Potassium 3.4 L (3.5-5.1) mmol/L Chloride 103 (98-107) mmol/L Carbon Dioxide 25 (22-30) mmol/L BUN 11 (9-20) mg/dL Creatinine 1.08 (0.66-1.25) mg/dL Glucose 109 H (74-99) mg/dL Calcium 8.9 (8.4-10.2) mg/dL AST 26 (17-59) U/L ALT 21 (4-49) U/L Alkaline Phosphatase 74 (38-126) U/L Total Protein 6.7 (6.3-8.2) g/dL Albumin 3.9 (3.5-5.0) g/dL Calcium panel 02/26/23 Range/Units 15:47 Calcium 8.9 (8.4-10.2) mg/dL Albumin 3.9 (3.5-5.0) g/dL Pituitary panel 02/26/23 Range/Units 15:47 Sodium 138 (137-145) mmol/L Potassium 3.4 L (3.5-5.1) mmol/L Chloride 103 (98-107) mmol/L Carbon Dioxide 25 (22-30) mmol/L BUN 11 (9-20) mg/dL Creatinine 1.08 (0.66-1.25) mg/dL Glucose 109 H (74-99) mg/dL Calcium 8.9 (8.4-10.2) mg/dL Adrenal panel 12/30/23 Range/Units 15:47 Sodium 138 (137-145) mmol/L Potassium 3.4 L (3.5-5.1) mmol/L Chloride 103 (98-107) mmol/L Carbon Dioxide 25 (22-30) mmol/L BUN 11 (9-20) mg/dL Creatinine 1.08 (0.66-1.25) mg/dL Glucose 109 H (74-99) mg/dL Calcium 8.9 (8.4-10.2) mg/dL Total Bilirubin 1.5 H (0.2-1.3) mg/dL AST 26 (17-59) U/L ALT 21 (4-49) U/L Alkaline Phosphatase 74 (38-126) U/L Total Protein 6.7 (6.3-8.2) g/dL Albumin 3.9 (3.5-5.0) g/dL Assessment and Plan Assessment: Patient is an 82-year-old male who presents with left groin pain with CT evidence of potential left inguinal hernia with evidence of left femoral hernia on examination, as well as evidence of cecal thickening concerning for malignanc y Plan: -Patient counseled that left inguinal hernia is reducible and thus no urgent operative intervention indicated. Patient provided surgical follow-up for elective inguinal hernia repair -Patient counseled that due to the suspicious findings of the cecum on cross-sectional imaging patient will require repeat colonoscopy for further evaluation -patient counseled to manually reduce his left inguinal hernia in the supine position when he feels that the pain is increasing, patient shown how to reduce hernia at bedtime -Patient okay to discharge home from a general surgical standpoint Saqib Mckeon MD General Surgery
[2023-02-27] MEDS ORDERED: PANTOPRAZOLE 40 MG/10 ML VIAL IV SCH (09:00)
== END 2023-02-26 18:50 | disposition home or self-care (01) ==
LOC: EC 15:20 → 6NMEDSUR 17:57 → UNDOADMOB 17:57 → EC 18:50
DX: K40.90 Unilateral inguinal hernia, without obstruction or gangrene, not specified as recurrent (principal); R10.84 Generalized abdominal pain; I45.10 Unspecified right bundle-branch block; Z87.891 Personal history of nicotine dependence
CPT/HCPCS: 99284; 96374; 96375; 96361; 36415; 93005; 80053; 82150; 83690; 84484; 85025; 85610; 85730; 81001; 74018; 74176; J2405; C9113

== ENCOUNTER 2023-03-14 12:52 | Emergency (ER) | payer MEDICARE ==
--- NOTE | 2023-03-14 13:34 | ED ---
GI Bleed HPI - General Source: patient, family, RN notes reviewed Mode of arrival: ambulatory Limitations: no limitations <Tia Wang - Last Filed: 03/14/23 13:32> <Juan David Kruger - Last Filed: 03/14/23 15:00> - General Chief complaint: GI Bleed Stated complaint: rectal bleeding Time Seen by Provider: 03/14/23 13:32 - History of Present Illness Initial comments: This is an 82 year old male who presents to the emergency department for bright red rectal bleeding beginning this morning. Not taking any blood thinners. Denies any abdominal pain. Patient was here for a hernia a couple of weeks ago and told that the CT scan findings were suspicious for colon cancer. (Tia Wang) - Related Data Home Medications Medication Instructions Recorded Confirmed Lenalidomide [Revlimid] 5 mg PO DAILY 05/25/16 07/09/20 Cyanocobalamin [Vitamin B-12 1,000 mcg SQ Q10D 07/09/20 07/09/20 Injection] Allergies Allergy/AdvReac Type Severity Reaction Status Date / Time No Known Allergies Allergy Verified 03/14/23 13:17 Review of Systems ROS Other: All systems not noted in ROS Statement are negative. <Tia Wang - Last Filed: 03/14/23 13:32> ROS Other: All systems not noted in ROS Statement are negative. <Juan David Kruger - Last Filed: 03/14/23 15:00> ROS Statement: Those systems with pertinent positive or pertinent negative responses have been documented in the HPI. Past Medical History Past Medical History: Cancer Additional Past Medical History / Comment(s): MDS, myelodysplastic syndrome- cancer free x 2 weeks. History of Any Multi-Drug Resistant Organisms: None Reported Past Surgical History: No Surgical Hx Reported Past Anesthesia/Blood Transfusion Reactions: No Reported Reaction Past Psychological History: No Psychological Hx Reported Smoking Status: Former smoker Past Alcohol Use History: Daily Past Drug Use History: None Reported - Past Family History Father History Unknown: Yes <Tia Wang - Last Filed: 03/14/23 13:32> General Exam Limitations: no limitations <Tia Wang - Last Filed: 03/14/23 13:32> General appearance: alert, in no apparent distress Head exam: Present: atraumatic, normocephalic Eye exam: Present: normal appearance, PERRL ENT exam: Present: normal exam Neck exam: Present: normal inspection Respiratory exam: Present: normal lung sounds bilaterally. Absent: respiratory distress, wheezes Cardiovascular Exam: Present: regular rate, normal rhythm GI/Abdominal exam: Present: soft. Absent: distended, tenderness Rectal exam: Present: normal rectal tone. Absent: black stool, bloody stool, hemorrhoids Extremities exam: Present: normal inspection, normal capillary refill Neurological exam: Present: alert, oriented X3, CN II-XII intact. Absent: motor sensory deficit Skin exam: Present: warm, dry, intact <Juan David Kruger - Last Filed: 03/14/23 15:00> - General Exam Comments Initial Comments: Visual Physical Exam Vital signs reviewed General: Well-appearing, nontoxic, no acute distress. Head: Normocephalic, atraumatic Eyes: PERRLA, EOMI ENT: Airway patent Chest: Nonlabored breathing Skin: No visual rash, normal skin tone Neuro: Alert and oriented 3 Musculoskeletal: No gross abnormalities (Tia Wang) Course Vital Signs 03/14/23 13:13 Temperature 98 F Pulse Rate 69 Respiratory 16 Rate Blood Pressure 154/91 O2 Sat by Pulse 96 Oximetry Medical Decision Making <Tia Wang - Last Filed: 03/14/23 13:32> - Lab Data Result diagrams: 03/14/23 14:02 03/14/23 14:02 <Juan David Kruger - Last Filed: 03/14/23 15:00> - Medical Decision Making I performed the QuickNote portion of this chart. Signed Tia Wang PA-C. (Tia Wang) Was pt. sent in by a medical professional or institution (SAMIR Lopez, PRINCIPAL GIFTS OFFICER, urgent care, hospital, or retirement...) When possible be specific @ -No Did you speak to anyone other than the patient for history (EMS, parent, family, police, friend...)? What history was obtained from this source @ -[Patient's daughter who is at bedside Did you review nursing and triage notes (agree or disagree)? Why? @ -I reviewed and agree with nursing and triage notes Were old charts reviewed (outside hosp., previous admission, EMS record, old EKG, old radiological studies, urgent care reports/EKG's, retirement records)? Report findings @ -No old charts were reviewed Differential Diagnosis (chest pain, altered mental status, abdominal pain women, abdominal pain men, vaginal bleeding, weakness, fever, dyspnea, syncope, headache, dizziness, GI bleed, back pain, seizure, CVA, palpatations, mental health, musculoskeletal)? @ -Differential GI Bleed: Esophageal varices, aortoenteric fistula, Nivia-Goldman, gastritis, peptic ulcer disease, diverticulosis, inflammatory bowel disease, hemorrhoids, fissure, colitis, malignancy, Meckels diverticulum, this is not meant to be an all- inclusive list. EKG interpreted by me (3pts min.). @ Sinus rhythm incomplete right bundle, rate of 67, LA interval 174, QRS duration 110, QTC [address] segment elevation, PVC present X-rays interpreted by me (1pt min.). @ -None done CT interpreted by me (1pt min.). @ -None done U/S interpreted by me (1pt. min.). @ -None done What testing was considered but not performed or refused? (CT, X-rays, U/S, labs)? Why? @ -None What meds were considered but not given or refused? Why? @ -None Did you discuss the management of the patient with other professionals (jessica silveira i.e. , PA, PRINCIPAL GIFTS OFFICER, lab, RT, psych nurse, marriage and family social worker, immigration lawyer, teacher, licensed loan officer, caseworker protective services)? Give summary @ -No Was smoking cessation discussed for >3mins.? @ -No Was critical care preformed (if so, how long)? @ -No Were there social determinants of health that impacted care today? How? (Homelessness, low income, unemployed, alcoholism, drug addiction, transportati on, low edu. Level, literacy, decrease access to med. care, assisted, rehab)? @ -No Was there de-escalation of care discussed even if they declined (Discuss DNR or withdrawal of care, Hospice)? DNR status @ -No What co-morbidities impacted this encounter? (DM, HTN, Smoking, COPD, CAD, Cancer, CVA, ARF, Chemo, Hep., AIDS, mental health diagnosis, sleep apnea, morbid obesity)? @ -MDS Was patient admitted / discharged? Hospital course, mention meds given and route, prescriptions, significant lab abnormalities, going to OR and other pertinent info. @ 82-year-old male with an episode of rectal bleeding which occurred earlier today. Patient states this was with a bowel movement. He states he had a colonoscopy but this was 10 years ago. He was seen in the emergency department approximately 2 weeks ago and had surgical evaluation for both hernia and thickening at the cecum and is currently awaiting outpatient referral to general surgery for colonoscopy and further evaluation. Patient has no complaints at the time my evaluation. He has no bright red blood or melanotic stool on rectal exam. No external hemorrhoids present. Patient has no abdominal pain or tenderness vital signs are stable. Hemoglobin is 14.4, platelets are 138. Patient's prefers discharge at this time. Patient and daughter instructed on return parameters including significant bright red rectal bleeding. He will monitor stool closely. He will continue to follow with general surgery as an outpatient. Undiagnosed new problem with uncertain prognosis? @ -No Drug Therapy requiring intensive monitoring for toxicity (Heparin, Nitro, Insulin, Cardizem)? @ -No Were any procedures done? @ -No Diagnosis/symptom? @ -Rectal bleeding Acute, or Chronic, or Acute on Chronic? @ Acute Uncomplicated (without systemic symptoms) or Complicated (systemic symptoms)? @ -[complicated Side effects of treatment? @ -No Exacerbation, Progression, or Severe Exacerbation? @ -No Poses a threat to life or bodily function? How? (Chest pain, [place], AR, pneumonia, PE, COPD, DKA, ARF, appy, cholecystitis, CVA, Diverticulitis, Homicidal, Suicidal, threat to staff... and all critical care pts) @ -[Low risk at this time (Juan David Kruger) - Lab Data Lab Results 03/14/23 03/14/23 03/14/23 Range/Units 14:02 14:02 14:02 WBC 5.0 (3.8-10.6) k/uL RBC 4.15 L (4.30-5.90) m/uL Hgb 14.4 (13.0-17.5) gm/dL Hct 40.3 (39.0-53.0) % MCV 97.0 (80.0-100.0) fL MCH 34.7 (25.0-35.0) pg MCHC 35.7 (31.0-37.0) g/dL RDW 13.2 (11.5-15.5) % Plt Count 138 L (150-450) k/uL MPV 7.4 Neutrophils % 73 % Lymphocytes % 18 % Monocytes % 5 % Eosinophils % 2 % Basophils % 0 % Neutrophils # 3.7 (1.3-7.7) k/uL Lymphocytes # 0.9 L (1.0-4.8) k/uL Monocytes # 0.2 (0-1.0) k/uL Eosinophils # 0.1 (0-0.7) k/uL Basophils # 0.0 (0-0.2) k/uL PT 10.7 (10.0-12.5) sec INR 1.0 (<1.2) APTT 22.8 (22.0-30.0) sec Sodium 139 (137-145) mmol/L Potassium 4.1 (3.5-5.1) mmol/L Chloride 109 H (98-107) mmol/L Carbon Dioxide 25 (22-30) mmol/L Anion Gap 5 mmol/L BUN 14 (9-20) mg/dL Creatinine 1.04 (0.66-1.25) mg/dL Est GFR (CKD-EPI)AfAm 77 (>60 ml/min/1.73 sqM) Est GFR (CKD-EPI)NonAf 66 (>60 ml/min/1.73 sqM) Glucose 97 (74-99) mg/dL Plasma Lactic Acid Abhishek (0.7-2.0) mmol/L Calcium 8.7 (8.4-10.2) mg/dL Total Bilirubin 1.3 (0.2-1.3) mg/dL AST 25 (17-59) U/L ALT 17 (4-49) U/L Alkaline Phosphatase 64 (38-126) U/L Total Protein 6.4 (6.3-8.2) g/dL Albumin 3.7 (3.5-5.0) g/dL 03/14/23 Range/Units 14:02 WBC (3.8-10.6) k/uL RBC (4.30-5.90) m/uL Hgb (13.0-17.5) gm/dL Hct (39.0-53.0) % MCV (80.0-100.0) fL MCH (25.0-35.0) pg MCHC (31.0-37.0) g/dL RDW (11.5-15.5) % Plt Count (150-450) k/uL MPV Neutrophils % % Lymphocytes % % Monocytes % % Eosinophils % % Basophils % % Neutrophils # (1.3-7.7) k/uL Lymphocytes # (1.0-4.8) k/uL Monocytes # (0-1.0) k/uL Eosinophils # (0-0.7) k/uL Basophils # (0-0.2) k/uL PT (10.0-12.5) sec INR (<1.2) APTT (22.0-30.0) sec Sodium (137-145) mmol/L Potassium (3.5-5.1) mmol/L Chloride (98-107) mmol/L Carbon Dioxide (22-30) mmol/L Anion Gap mmol/L BUN (9-20) mg/dL Creatinine (0.66-1.25) mg/dL Est GFR (CKD-EPI)AfAm (>60 ml/min/1.73 sqM) Est GFR (CKD-EPI)NonAf (>60 ml/min/1.73 sqM) Glucose (74-99) mg/dL Plasma Lactic Acid Abhishek 0.7 (0.7-2.0) mmol/L Calcium (8.4-10.2) mg/dL Total Bilirubin (0.2-1.3) mg/dL AST (17-59) U/L ALT (4-49) U/L Alkaline Phosphatase (38-126) U/L Total Protein (6.3-8.2) g/dL Albumin (3.5-5.0) g/dL Disposition <Tia Wang - Last Filed: 03/14/23 13:32> Is patient prescribed a controlled substance at d/c from ED?: No Time of Disposition: 14:59 <Juan David Kruger - Last Filed: 03/14/23 15:00> Clinical Impression: Rectal bleeding Disposition: HOME SELF-CARE Condition: Good Instructions (If sedation given, give patient instructions): Gastrointestinal Bleeding (ED) Additional Instructions: Please monitor stool closely, return immediately to the emergency department with significant bleeding. Please follow closely with general surgery as planned. Referrals: None,Stated [Primary Care Provider] - 1-2 days Laurent Troy MD [Medical Doctor] - 1-2 days
[2023-03-14 13:36] VITALS: TEMP 98
[2023-03-14 14:21] LABS: Basophils % (A) 0 %; Eosinophils # (A) 0.1 k/uL (0-0.7); Eosinophils % (A) 2 %; HCT 40.3 % (39.0-53.0); HGB 14.4 gm/dL (13.0-17.5); Lymphocytes # (A) 0.9 k/uL (1.0-4.8); Lymphocytes % (A) 18 %; MCH 34.7 pg (25.0-35.0); MCHC 35.7 g/dL (31.0-37.0); Mean Platelet Volume 7.4; Monocytes # (A) 0.2 k/uL (0-1.0); Monocytes % (A) 5 %; Neutrophils # (A) 3.7 k/uL (1.3-7.7); Neutrophils % (A) 73 %; Platelet Count 138 k/uL (150-450); RBC 4.15 m/uL (4.30-5.90); RDW 13.2 % (11.5-15.5)
[2023-03-14 14:34] LABS: Partial Thromboplastin Time 22.8 sec (22.0-30.0); Prothrombin Time 10.7 sec (10.0-12.5)
[2023-03-14 14:36] LABS: ALT 17 U/L (4-49); AST 25 U/L (17-59); African American GFR (CKD) 77 (>60 ml/min/1.73 sqM); Albumin 3.7 g/dL (3.5-5.0); Alkaline Phosphatase 64 U/L (38-126); Anion Gap 5 mmol/L; Blood Urea Nitrogen 14 mg/dL (9-20); Calcium 8.7 mg/dL (8.4-10.2); Carbon Dioxide 25 mmol/L (22-30); Chloride 109 mmol/L (98-107); Glucose 97 mg/dL (74-99); Non-African American GFR(CKD) 66 (>60 ml/min/1.73 sqM); Potassium 4.1 mmol/L (3.5-5.1); Sodium 139 mmol/L (137-145); Total Bilirubin 1.3 mg/dL (0.2-1.3); Total Protein 6.4 g/dL (6.3-8.2)
[2023-03-14 15:38] VITALS: BP 164/84; PULSE 80; RESP 18
== END 2023-03-14 15:20 | disposition home or self-care (01) ==
LOC: EC 12:52
DX: K62.5 Hemorrhage of anus and rectum (principal); Z87.891 Personal history of nicotine dependence
CPT/HCPCS: 36415; 80053; 83605; 85025; 85610; 85730; 93005; 99285

== ENCOUNTER 2023-09-02 12:19 | Emergency (ER) | payer MEDICARE ==
[2023-09-02 13:10] VITALS: TEMP 98
[2023-09-02] MEDS: SODIUM CHLORIDE 0.9% 1,000 ML IV STA (13:41)
[2023-09-02] MEDS: MORPHINE SULFATE 2 MG/ML SYRINGE IVP STA (13:41)
[2023-09-02 13:53] LABS: Basophils % (A) 1 %; Eosinophils # (A) 0.1 k/uL (0-0.7); Eosinophils % (A) 2 %; HCT 42.3 % (39.0-53.0); HGB 14.5 gm/dL (13.0-17.5); Lymphocytes # (A) 1.1 k/uL (1.0-4.8); Lymphocytes % (A) 19 %; MCH 33.4 pg (25.0-35.0); MCHC 34.3 g/dL (31.0-37.0); MCV 97.3 fL (80.0-100.0); Mean Platelet Volume 7.6; Monocytes # (A) 0.3 k/uL (0-1.0); Monocytes % (A) 6 %; Neutrophils % (A) 72 %; Platelet Count 206 k/uL (150-450); RBC 4.35 m/uL (4.30-5.90); RDW 12.1 % (11.5-15.5); WBC 5.6 k/uL (3.8-10.6)
[2023-09-02 14:09] LABS: ALT 61 U/L (4-49); AST 45 U/L (17-59); African American GFR (CKD) 84 (>60 ml/min/1.73 sqM); Albumin 3.7 g/dL (3.5-5.0); Alkaline Phosphatase 103 U/L (38-126); Amylase 52 U/L (30-110); Anion Gap 5 mmol/L; Blood Urea Nitrogen 9 mg/dL (9-20); Calcium 8.9 mg/dL (8.4-10.2); Carbon Dioxide 26 mmol/L (22-30); Chloride 104 mmol/L (98-107); Glucose 111 mg/dL (74-99); Lipase 140 U/L (23-300); Magnesium 2.1 mg/dL (1.6-2.3); Non-African American GFR(CKD) 73 (>60 ml/min/1.73 sqM); Phosphorus 2.6 mg/dL (2.5-4.5); Potassium 4.2 mmol/L (3.5-5.1); Sodium 135 mmol/L (137-145); Total Bilirubin 1.4 mg/dL (0.2-1.3); Total Protein 6.2 g/dL (6.3-8.2)
--- NOTE | 2023-09-02 14:47 | ED ---
Abdominal Pain HPI - General Chief Complaint: Abdominal Pain Stated Complaint: Abd pain Time Seen by Provider: 09/02/23 13:13 Source: patient, family, RN notes reviewed Mode of arrival: ambulatory Limitations: no limitations - History of Present Illness Initial Comments: This is an 82-year-old male who presents to the emergency department for abdominal pain, loss of appetite, fatigue, and weight loss. Patient had 10 inches of his colon removed in April secondary to colon cancer. States that this was done at [place]. He follows with oncology in [place]. However, states that he has declined any further treatment for the cancer at this time. Family states that he has lost a lot of weight in the last 2 weeks. He is not nauseous, but states that he is not wanting to eat anything. He is only having small bowel movements every 3 days. He is taking stool softeners without much relief. Not taking any narcotic pain medication. - Related Data Home Medications Medication Instructions Recorded Confirmed Lenalidomide [Revlimid] 5 mg PO DAILY 05/25/16 07/09/20 Cyanocobalamin [Vitamin B-12 1,000 mcg SQ Q10D 07/09/20 07/09/20 Injection] Previous Rx's Medication Instructions Recorded Escitalopram [Lexapro] 5 mg PO DAILY #30 tablet 09/02/23 HYDROcodone/APAP 7.5-325MG [[place] 1 tab PO Q6H PRN #18 tab 09/02/23 7.5-325] Meloxicam [Mobic] 15 mg PO DAILY PRN #30 tab 09/02/23 Ondansetron Odt [Zofran Odt] 4 mg PO Q8HR PRN #15 tab 09/02/23 Allergies Allergy/AdvReac Type Severity Reaction Status Date / Time No Known Allergies Allergy Verified 09/02/23 13:10 Review of Systems ROS Statement: Those systems with pertinent positive or pertinent negative responses have been documented in the HPI. ROS Other: All systems not noted in ROS Statement are negative. Past Medical History Past Medical History: Cancer Additional Past Medical History / Comment(s): MDS, myelodysplastic syndrome, stage 3 colon cancer History of Any Multi-Drug Resistant Organisms: None Reported Past Surgical History: No Surgical Hx Reported Additional Past Surgical History / Comment(s): Colon mass removal and 10 inches removed from intestines, Past Anesthesia/Blood Transfusion Reactions: No Reported Reaction Past Psychological History: Depression Smoking Status: Former smoker Past Alcohol Use History: Daily Past Drug Use History: None Reported - Past Family History Father History Unknown: Yes General Exam Limitations: no limitations General appearance: alert, in no apparent distress Head exam: Present: atraumatic, normocephalic, normal inspection Respiratory exam: Present: normal lung sounds bilaterally. Absent: respiratory distress, wheezes, rales, rhonchi, stridor Cardiovascular Exam: Present: regular rate, normal rhythm, normal heart sounds. Absent: systolic murmur, diastolic murmur, rubs, gallop, clicks GI/Abdominal exam: Present: soft, tenderness (diffuse). Absent: distended Neurological exam: Present: alert, oriented X3, CN II-XII intact Psychiatric exam: Present: normal affect, normal mood Skin exam: Present: warm, dry, intact, normal color. Absent: rash Course Vital Signs 09/02/23 09/02/23 12:59 15:30 Temperature 98.0 F Pulse Rate 87 70 Respiratory 17 16 Rate Blood Pressure 147/93 149/82 O2 Sat by Pulse 98 98 Oximetry Medical Decision Making - Medical Decision Making This is an 82 year old male who presents to the emergency department for abdominal pain and weakness. Was pt. sent in by a medical professional or institution? @ -No Did you speak to anyone other than the patient for history? @ -No Did you review nursing and triage notes? @ -Yes, and I agree, it is accurate with regards to the patient's symptoms. Were old charts reviewed? @ -No Differential Diagnosis? @ -Differential Abdominal Pain Men: Appendicitis, cholecystitis, diverticulosis, ischemic bowel, pancreatitis, hepatitis, UTI, gastroenteritis, AAA, incarcerated hernia, bowel obstruction, constipation, inflammatory bowel, hepatitis, peptic ulcer disease, splenic infarction, perforated viscus, testicular torsion, this is not meant to be an all-inclusive list EKG interpreted by me (3pts min.)? @ -EKG interpreted by me demonstrating the following: Sinus rhythm. Ventricular rate 68 bpm, DC interval 140 ms, QRS duration 109 ms, QTc 401 ms. X-rays interpreted by me (1pt min.)? @ -Not obtained CT interpreted by me (1pt min.)? @ -CT scan of the abdomen and pelvis obtained. My interpretation identifies no evidence of free air. U/S interpreted by me (1pt. min.)? @ -Not obtained What testing was considered but not performed? (CT, X-rays, U/S, labs)? Why? @ -None What meds were considered but not given? Why? @ -None Did you discuss the management of the patient with other professionals? @ -No Did you reconcile home meds? @ -No Was smoking cessation discussed for >3mins.? @ -No Was critical care preformed (if so, how long)? @ -No Were there social determinants of health that impacted care today? How? (Homelessness, low income, unemployed, alcoholism, drug addiction, transportation, low edu. Level, literacy, decrease access to med. care, usp, rehab)? @ -No Was there de-escalation of care discussed even if they declined? (Discuss DNR or withdrawal of care, Hospice)? @ -No What co-morbidities impacted this encounter? (DM, HTN, Smoking, COPD, CAD, Cancer, CVA, Hep., AIDS, mental health diagnosis, sleep apnea, morbid obesity)? @ -Colon cancer Was patient admitted / discharged? @ -Discharged. Lab work unremarkable. Urinalysis negative for signs of infection. CT scan of the abdomen and pelvis obtained demonstrating multiple areas concerning for cancer progression, including new soft tissue nodules in the abdomen, a suspicious T11 vertebral appearance, and prostatomegaly. Additionally, he has a distended urinary bladder with concern for chronic bladder outlet obstruction due to prostatomegaly. Symptoms well-controlled in the emergency department. Postvoid residual bladder scan demonstrates 400 mL of urine. I did advise a catheter, however patient declined as he is still able to urinate and not in significant discomfort following medications. In-depth discussion took place with the patient and his family regarding his symptoms, and that they are likely related to cancer progression. I did offer transfer to a facility where his oncologist practices for further evaluation if they feel he needs to be hospitalized. However, patient and his family feel that they are comfortable with discharge home as long as he is able to manage his symptoms and they will follow-up on an outpatient basis. Prescription for [place], Mobic, and Zofran provided for symptomatic control. Family notes that he has also been struggling with his mood quite a bit, and he was started on a low-dose Lexapro at 5 mg. Advised discussing this with his primary care provider as it can be increased as needed. Family was given a copy of his CT results. Advised contacting his oncologist's office for a sooner follow-up appointment given these findings and the patient's symptoms. He was otherwise discharged home in stable condition with strict return parameters. Undiagnosed new problem with uncertain prognosis? @ -None Drug Therapy requiring intensive monitoring for toxicity (Heparin, Nitro, Insulin, Cardizem)? @ -None Were any procedures done? @ -None Diagnosis/symptom? @ -Cancer associated pain, weight loss Acute, or Chronic, or Acute on Chronic? @ -Acute Uncomplicated (without systemic symptoms) or Complicated (systemic symptoms)? @ -Complicated Side effects of treatment? @ -None Exacerbation, Progression, or Severe Exacerbation] @ -Not applicable Poses a threat to life or bodily function? @ -This has an impact on his function in general. Return precautions reviewed in depth, the patient is instructed to return to the emergency department with any new, worsening, or concerning symptoms. Patient verbalized understanding. This case was discussed in detail with the attending ED physician, Dr. López. Presentation, findings, and treatment plan discussed in detail as well. - Lab Data Result diagrams: 09/02/23 13:44 09/02/23 13:44 Lab Results 09/02/23 09/02/23 09/02/23 Range/Units 13:44 13:44 13:44 WBC 5.6 (3.8-10.6) k/uL RBC 4.35 (4.30-5.90) m/uL Hgb 14.5 (13.0-17.5) gm/dL Hct 42.3 (39.0-53.0) % MCV 97.3 (80.0-100.0) fL MCH 33.4 (25.0-35.0) pg MCHC 34.3 (31.0-37.0) g/dL RDW 12.1 (11.5-15.5) % Plt Count 206 (150-450) k/uL MPV 7.6 Neutrophils % 72 % Lymphocytes % 19 % Monocytes % 6 % Eosinophils % 2 % Basophils % 1 % Neutrophils # 4.0 (1.3-7.7) k/uL Lymphocytes # 1.1 (1.0-4.8) k/uL Monocytes # 0.3 (0-1.0) k/uL Eosinophils # 0.1 (0-0.7) k/uL Basophils # 0.0 (0-0.2) k/uL Sodium 135 L (137-145) mmol/L Potassium 4.2 (3.5-5.1) mmol/L Chloride 104 (98-107) mmol/L Carbon Dioxide 26 (22-30) mmol/L Anion Gap 5 mmol/L BUN 9 (9-20) mg/dL Creatinine 0.97 (0.66-1.25) mg/dL Est GFR (CKD-EPI)AfAm 84 (>60 ml/min/1.73 sqM) Est GFR (CKD-EPI)NonAf 73 (>60 ml/min/1.73 sqM) Glucose 111 H (74-99) mg/dL Plasma Lactic Acid Abhishek (0.7-2.0) mmol/L Calcium 8.9 (8.4-10.2) mg/dL Phosphorus 2.6 (2.5-4.5) mg/dL Magnesium 2.1 (1.6-2.3) mg/dL Total Bilirubin 1.4 H (0.2-1.3) mg/dL AST 45 (17-59) U/L ALT 61 H (4-49) U/L Alkaline Phosphatase 103 (38-126) U/L Total Protein 6.2 L (6.3-8.2) g/dL Albumin 3.7 (3.5-5.0) g/dL Amylase 52 (30-110) U/L Lipase 140 (23-300) U/L Urine Color Colorless Urine Appearance Clear (Clear) Urine pH 7.5 (5.0-8.0) Ur Specific [place] 1.005 (1.001-1.035) Urine Protein Negative (Negative) Urine Glucose (UA) Negative (Negative) Urine Ketones Negative (Negative) Urine Blood Negative (Negative) Urine Nitrite Negative (Negative) Urine Bilirubin Negative (Negative) Urine Urobilinogen <2.0 (<2.0) mg/dL Ur Leukocyte Esterase Small H (Negative) Urine RBC <1 (0-5) /hpf Urine WBC 5 (0-5) /hpf Ur Squamous Epith Cells <1 (0-4) /hpf 09/02/23 Range/Units 13:44 WBC (3.8-10.6) k/uL RBC (4.30-5.90) m/uL Hgb (13.0-17.5) gm/dL Hct (39.0-53.0) % MCV (80.0-100.0) fL MCH (25.0-35.0) pg MCHC (31.0-37.0) g/dL RDW (11.5-15.5) % Plt Count (150-450) k/uL MPV Neutrophils % % Lymphocytes % % Monocytes % % Eosinophils % % Basophils % % Neutrophils # (1.3-7.7) k/uL Lymphocytes # (1.0-4.8) k/uL Monocytes # (0-1.0) k/uL Eosinophils # (0-0.7) k/uL Basophils # (0-0.2) k/uL Sodium (137-145) mmol/L Potassium (3.5-5.1) mmol/L Chloride (98-107) mmol/L Carbon Dioxide (22-30) mmol/L Anion Gap mmol/L BUN (9-20) mg/dL Creatinine (0.66-1.25) mg/dL Est GFR (CKD-EPI)AfAm (>60 ml/min/1.73 sqM) Est GFR (CKD-EPI)NonAf (>60 ml/min/1.73 sqM) Glucose (74-99) mg/dL Plasma Lactic Acid Abhishek 1.0 (0.7-2.0) mmol/L Calcium (8.4-10.2) mg/dL Phosphorus (2.5-4.5) mg/dL Magnesium (1.6-2.3) mg/dL Total Bilirubin (0.2-1.3) mg/dL AST (17-59) U/L ALT (4-49) U/L Alkaline Phosphatase (38-126) U/L Total Protein (6.3-8.2) g/dL Albumin (3.5-5.0) g/dL Amylase (30-110) U/L Lipase (23-300) U/L Urine Color Urine Appearance (Clear) Urine pH (5.0-8.0) Ur Specific [place] (1.001-1.035) Urine Protein (Negative) Urine Glucose (UA) (Negative) Urine Ketones (Negative) Urine Blood (Negative) Urine Nitrite (Negative) Urine Bilirubin (Negative) Urine Urobilinogen (<2.0) mg/dL Ur Leukocyte Esterase (Negative) Urine RBC (0-5) /hpf Urine WBC (0-5) /hpf Ur Squamous Epith Cells (0-4) /hpf - Radiology Data Radiology results: report reviewed, image reviewed Disposition Clinical Impression: Colon cancer, Cancer associated pain, Weight loss Disposition: HOME SELF-CARE Additional Instructions: Return to the emergency department with any new, worsening, or concerning symptoms. Begin taking the Lexapro once daily to see if this helps with your overall mood. This can be increased as needed. You can take the Mobic once daily with Tylenol for discomfort. Take the [place] sparingly when your pain is the most severe and be aware that it may make you drowsy. If you develop any nausea or vomiting you can try taking the Zofran. Contact your oncologist regarding your symptoms and CT scan findings to see if they would like to see you for a sooner follow-up appointment. Try to increase your caloric intake as well. Follow up with your primary care provider in 1-2 days. Prescriptions: Escitalopram [Lexapro] 5 mg PO DAILY #30 tablet Meloxicam [Mobic] 15 mg PO DAILY PRN #30 tab PRN Reason: Pain HYDROcodone/APAP 7.5-325MG [[place] 7.5-325] 1 tab PO Q6H PRN #18 tab PRN Reason: Pain Ondansetron Odt [Zofran Odt] 4 mg PO Q8HR PRN #15 tab PRN Reason: Nausea And Vomiting Is patient prescribed a controlled substance at d/c from ED?: Yes When asked, does pt state using other controlled substances?: No If prescribed controlled substance>3 days was MAPS reviewed?: Prescribed <3 Days Referrals: Boni Daigle DO [Primary Care Provider] - 1-2 days Time of Disposition: 16:14
[2023-09-02 14:55] LABS: Appearance,Urine Clear (Clear); Bilirubin,Urine Negative (Negative); Blood,Urine Negative (Negative); Color,Urine Colorless; Glucose,Urine (UA) Negative (Negative); Ketones,Urine Negative (Negative); Leukocyte Esterase,Urine Small (Negative); Nitrite,Urine Negative (Negative); PH, Urine 7.5 (5.0-8.0); Protein,Urine Negative (Negative); RBC,Urine <1 /hpf (0-5); Specific Gravity,Urine 1.005 (1.001-1.035); Squamous Epithelial Cell,Urine <1 /hpf (0-4); Urobilinogen,Urine <2.0 mg/dL (<2.0); WBC,Urine 5 /hpf (0-5)
--- NOTE | 2023-09-02 15:24 | CT ---
EXAMINATION TYPE: CT abdomen pelvis w con CT DLP: 824.5 mGycm, Automated exposure control for dose reduction was used. DATE OF EXAM: 09/02/2023 3:11 PM COMPARISON: CT abdomen pelvis most recent from 02/26/2023 CLINICAL INDICATION:Male, 82 years old with history of abdominal pain and bloating, hx of colon cance r; colo ca/abd pain TECHNIQUE: Axial CT abdomen pelvis w con;Sagittal and coronal reformats were created on a separate w orkstation. Contrast used:100 mL of Isovue 300 with IV Contrast, (none if empty) Oral contrast used: without Oral Contrast (none if empty) FINDINGS: LOWER CHEST: Unremarkable ABDOMEN LIVER: Unremarkable GALLBLADDER AND BILE DUCTS: Gallstone in the gallbladder neck. PANCREAS: Unremarkable. SPLEEN: Unremarkable. ADRENAL GLANDS: Unremarkable. KIDNEYS AND URETERS: No evidence of hydronephrosis or renal calculus. The ureters are unremarkable. PELVIS BLADDER: Distended with multiple bladder diverticula.r REPRODUCTIVE: Enlarged prostate gland measuring 5.8 cm. ABDOMEN & PELVIS STOMACH AND BOWEL: No evidence of bowel obstruction. PERITONEUM/RETROPERITONEUM: No evidence of pneumoperitoneum or free fluid. Postsurgical changes to th e right colon Scattered nodular-like opacities are seen within the omentum most pronounced along the right upper quadrant. Multiple soft tissue nodules are seen along the right paracolic gutter. VASCULATURE: No evidence of aortic aneurysm. MUSCULOSKELETAL: No acute osseous abnormalities, multilevel degeneration changes throughout the spine with abnormal appearance of caryn T11 vertebrae. LYMPH NODES: No gross evidence for lymphadenopathy. SOFT TISSUE/ABDOMINAL WALL: left fat-containing inguinal hernia. Intra-abdominal wall possible wall m etastatic implant series 201 image 71 measuring up to 23 mm. IMPRESSION: 1. 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 Further oncologic wor kup recommended. Suspicious T11 vertebrae appearance as well as anterior abdominal wall intramuscular nodule suspicious for metastatic disease. 2. Prostatomegaly correlate serum PSA. Hyperemia within the prostate gland consider MRI prostate for evaluation for clinically significant prostate adenocarcinoma. 3. Cholelithiasis at the gallbladder neck. 4. Distended urinary bladder with bladder diverticula. Correlate for chronic bladder outlet obstruct ion due to prostatomegaly.
[2023-09-02 16:27] VITALS: BP 149/82; PULSE 70; RESP 16
== END 2023-09-02 16:27 | disposition home or self-care (01) ==
LOC: EC 12:19
DX: C18.9 Malignant neoplasm of colon, unspecified (principal); K80.20 Calculus of gallbladder without cholecystitis without obstruction; N32.3 Diverticulum of bladder; G89.3 Neoplasm related pain (acute) (chronic); Z87.891 Personal history of nicotine dependence
CPT/HCPCS: 51798; 36415; 93005; 80053; 82150; 83605; 83690; 83735; 84100; 85025; 81001; 74177; 99285; 96374; 96361; J2270; Q9967